=== PATIENT | male | born 1935 | race Caucasian/White ===

== ENCOUNTER → 2017-12-23 11:53 | Outpatient (CLI) | payer MEDICARE, SELFPAY ==
--- NOTE | 2017-12-23 11:54 | RAD_ITS ---
STUDY: X-RAY CHEST REASON FOR EXAM: Male, 82 years old. Pacemaker hypertension atrial fib TECHNIQUE: PA and lateral views of the chest. COMPARISON: None. FINDINGS: There is a left-sided pacemaker with leads overlying right atrium and ventricle. There is a lucency along the right side of the lower lobe that is most suggestive of a skin fold. There is trace left lower lobe atelectasis. There is no demonstrated pleural abnormality. There is borderline cardiomegaly. Normal mediastinum and aliyah. Normal visualized pulmonary arteries. Normal visualized aortic arch and descending thoracic aorta. There are diffuse degenerative changes of the visualized thoracic spine. Normal visualized ribs, clavicles, and shoulders. There is no demonstrated abnormality of the visualized soft tissue structures of the upper abdomen. RAD/Chest PA and Lateral IMPRESSION: No evidence of acute focal infiltrate. Trace left lower lobe atelectasis. Electronically Signed: Steff Torres MD at 10:16 EST Tel , Service support ,
[2017-12-23 12:25] LABS: Bacteria 0 SEEN /hpf (None Seen); Mucous, Urine 0 SEEN /hpf (<or=2+); Red Blood Cells-Urine 0 SEEN /hpf (0-5); White Blood Cells 0 SEEN /hpf (0-5)
[2017-12-23 13:36] LABS: Hematocrit 39.6 % (40-54); Hemoglobin 12.7 g/dl (13.0-16.5); Mean Corp Hgb Conc 32.1 g/gl (32-36); Mean Corpuscular Hgb 29.7 pg (27.0-32.0); Mean Corpuscular Volume 92.5 fL (80-94); Mean Platelet Vol. 10.1 fl (6.2-12.0); Platelet Count 186 K/mm3 (150-450); RBC Distribution Width CV 15.1 % (11.6-14.6); Red Blood Count 4.28 M/mm3 (4.6-6.2); White Blood Count 4.1 K/mm3 (4.4-11.0)
[2017-12-23 13:37] LABS: Scan Indicated on CBC? Y/N NO
[2017-12-23 13:38] LABS: Color, Urine Yellow (Yellow); Glucose, Dipstick Normal (Normal); Ketone-Dipstick Negative (Negative); Leukocyte Esterase-Dipstick Negative /ul (Negative); Nitrite-Dipstick Negative (Negative); Occult Blood-Urine Negative /ul (Negative); Protein-Dipstick Negative (Negative); Urine Bilirubin Dipstick Negative (Negative); Urine Clarity Sl. Cloudy (Clear); Urine Urobilinogen Normal (Normal)
[2017-12-23 13:45] LABS: Squamous Epithelial Cells - UA 0-5 SEEN /hpf (0-5)
[2017-12-23 14:00] LABS: Anion Gap 6 (5-15); BUN 18 mg/dL (7-18); BUN/Creat Ratio 20.9 RATIO (10-20); Chloride 101 mmol/L (98-107); Creatinine, Serum 0.86 mg/dL (0.70-1.30); EST Glomerular Filtration Rate 91 mL/min (>60); Est Glom Filt Rate - Afr Amer 110 mL/min (>60); Glucose 74 mg/dL (70-110); Potassium 4.1 mmol/L (3.5-5.1); Sodium Level 139 mmol/L (136-145)
[2017-12-23 14:36] LABS: International Normalized Ratio 1.4
== END ==
PROVIDERS: Family Provider Preventive Medicine Occupational Medicine; PCP Preventive Medicine Occupational Medicine; Visit Provider Internal Medicine Cardiovascular Disease
DX: I48.1 Persistent atrial fibrillation (principal); I48.92 Unspecified atrial flutter; I10 Essential (primary) hypertension; Z95.0 Presence of cardiac pacemaker
CPT/HCPCS: 36415; 71046; 80048; 81001; 85027; 85610

== ENCOUNTER → 2018-01-02 09:52 | Day surgery (SDC) | payer MEDICARE, SELFPAY ==
[2017-12-30 14:18] VITALS: BMI 24.3
--- NOTE | 2018-01-04 10:49 | CL.IE_ITS ---
Patient: JOLNATA MILLER Study Date: 01/02/2018 Performing: James Munguia MD : 1935 Age: 82 Gender: male PROCEDURES PERFORMED [id number] REMOVAL+REPLACEMENT PACER-DUAL LEAD INDICATIONS End-of-life replacement indicator PROCEDURE DETAILS The patient was brought to the Catheterization Lab in the postabsorptive nonsedated state. Informed consent was obtained prior to the procedure. Local anesthetic was given subcutaneously to the left herr bclavian region with Lidocaine 2%. Incision was made to the left subclavicular area. PPM atrial lead testing performed. PPM ventricular lead testing performed. PPM ventricular lead testing performed. Herr bcutaneous closure was completed with 3-0 Vicryl. Device pocket was irrigated with antibiotic. Skin c losure was completed with 4-0 Vicryl. Instrument, sponge, and needle counts were noted to be normal. The patient tolerated the procedure well. Estimated Blood Loss: < 10 mls IMPLANTED / EX-PLANTED DEVICES EXPLANTED DEVICE(S): PPM Generator - Psychiatric Registered Nurse: [employer], Model # IMPLANTED DEVICE(S): PPM Generator - Psychiatric Registered Nurse: [employer], Model # [id number] , Serial # [id number] DEVICE PARAMETERS DEVICE PARAMETERS: Mode - ddir lower rate - 60 upper rate - 120 rate response on CONCLUSIONS / RECOMMENDATIONS Device Conclusions: Successful implantation of a dual chamber pacemaker Device Recommendations: Follow up with Primary Care Physician PROCEDURE MEDICATIONS Versed 1 mg IV Versed 1 mg IV Fentanyl 25 mcg IV Oxygen: 2 L/min via nasal cannula Ancef 2 Gm IV @ 01/02/2018 11:42:56 Signed By James Munguia MD On 01/02/2018 12:55:05 James Munguia MD
== END ==
PROVIDERS: Family Provider Preventive Medicine Occupational Medicine; PCP Preventive Medicine Occupational Medicine; Visit Provider Internal Medicine Cardiovascular Disease
DX: I48.1 Persistent atrial fibrillation (principal); I48.92 Unspecified atrial flutter; I08.0 Rheumatic disorders of both mitral and aortic valves; I49.5 Sick sinus syndrome; I10 Essential (primary) hypertension; Z79.01 Long term (current) use of anticoagulants; Z79.899 Other long term (current) drug therapy; Z87.891 Personal history of nicotine dependence; Z00.6 Encounter for examination for normal comparison and control in clinical research program
CPT/HCPCS: 33228; 93005; 99152; 99153; J7040; J7050

== ENCOUNTER → 2019-07-02 12:09 | Outpatient (CLI) | payer MEDICARE, SELFPAY ==
[2019-07-02 13:21] LABS: Hematocrit 41.4 % (40-54); Hemoglobin 13.4 g/dL (13.0-16.5); Mean Corp Hgb Conc 32.4 g/dL (32-36); Mean Corpuscular Hgb 29.8 pg (27.0-32.0); Mean Corpuscular Volume 92.2 fL (80-94); Mean Platelet Vol. 10.7 fl (6.2-12.0); Platelet Count 147 K/mm3 (150-450); RBC Distribution Width CV 14.4 % (11.6-14.6); RBC Distribution Width SD 48.4 fl (35.1-43.9); Red Blood Count 4.49 M/mm3 (4.6-6.2); White Blood Count 4.7 K/mm3 (4.4-11.0)
[2019-07-02 13:56] LABS: ALB/GLOB Ratio 1.2 RATIO (0.9-2.4); AST(SGOT) 18 U/L (15-37); Alanine Aminotransfer ALT/SGPT 20 U/L (16-61); Albumin, Serum 3.5 g/dL (3.2-5.0); Alkaline Phosphatase 48 U/L (45-117); Anion Gap 7 (5-15); BUN 26 mg/dL (7-18); BUN/Creat Ratio 26.7 RATIO (10-20); Calcium,Total 9.2 mg/dL (8.5-10.1); Chloride 106 mmol/L (98-107); Cholesterol 153 mg/dL (200); Creatinine, Serum 0.97 mg/dL (0.70-1.30); EST Glomerular Filtration Rate 78 mL/min (>60); Est Glom Filt Rate - Afr Amer 95 mL/min (>60); Glucose 81 mg/dL (74-106); High Density Lipoprotein 59 mg/dL; Magnesium 1.8 mg/dL (1.6-2.6); Potassium 4.2 mmol/L (3.5-5.1); Protein, Total 6.5 g/dL (6.4-8.2); Sodium Level 143 mmol/L (136-145); Triglycerides 52 mg/dL; Uric Acid 5.5 mg/dL (3.5-7.2); Very Low Density Lipoprotein 10 mg/dL (5-40)
== END ==
PROVIDERS: Family Provider Preventive Medicine Occupational Medicine; PCP Preventive Medicine Occupational Medicine; Referring Provider Preventive Medicine Occupational Medicine; Visit Provider Preventive Medicine Occupational Medicine
DX: I10 Essential (primary) hypertension (principal); E78.5 Hyperlipidemia, unspecified; E83.42 Hypomagnesemia; M10.9 Gout, unspecified; D64.9 Anemia, unspecified
CPT/HCPCS: 36415; 80053; 80061; 83735; 84550; 85027

== ENCOUNTER → 2020-07-15 12:22 | Outpatient (CLI) | payer MEDICARE, SELFPAY ==
[2020-04-24 15:08] VITALS: BMI 24.7
[2020-07-15 13:56] LABS: ALB/GLOB Ratio 1.1 RATIO (0.9-2.4); AST(SGOT) 16 U/L (15-37); Alanine Aminotransfer ALT/SGPT 17 U/L (16-61); Albumin, Serum 3.3 g/dL (3.2-5.0); Alkaline Phosphatase 44 U/L (45-117); Anion Gap 1 (5-15); BUN 30 mg/dL (7-18); BUN/Creat Ratio 21.9 RATIO (10-20); Chloride 106 mmol/L (98-107); Cholesterol 147 mg/dL (200); Creatinine, Serum 1.37 mg/dL (0.70-1.30); EST Glomerular Filtration Rate 53 mL/min (>60); Est Glom Filt Rate - Afr Amer 64 mL/min (>60); Globulin 3.1 g/dL (2.2-4.2); Glucose 103 mg/dL (74-106); High Density Lipoprotein 46 mg/dL; Potassium 4.2 mmol/L (3.5-5.1); Protein, Total 6.4 g/dL (6.4-8.2); Sodium Level 141 mmol/L (136-145); Triglycerides 79 mg/dL; Uric Acid 7.3 mg/dL (3.5-7.2); Very Low Density Lipoprotein 16 mg/dL (5-40)
[2020-07-15 16:53] LABS: Microalbumin,Random Urine 21.9 mg/L (NO RANGE EST.); Microalbumin:Creatinine Ratio 30.3 mg/g CRE (<30 mg/g CRE)
== END ==
PROVIDERS: PCP Preventive Medicine Occupational Medicine; Referring Provider Preventive Medicine Occupational Medicine; Visit Provider Preventive Medicine Occupational Medicine
DX: E78.5 Hyperlipidemia, unspecified (principal); I10 Essential (primary) hypertension; E83.42 Hypomagnesemia; M10.9 Gout, unspecified
CPT/HCPCS: 36415; 80053; 80061; 82043; 82570; 83735; 84550

== ENCOUNTER 2021-01-06 07:26 | Day surgery (SDC) | payer MEDICARE, SELFPAY ==
[2020-10-20 11:39] VITALS: BMI 24.7
--- NOTE | 2021-01-01 10:12 | EKG12_ITS ---
Test Reason : PREOP Blood Pressure : / mmHG Vent. Rate : 060 BPM Atrial Rate : 057 BPM P-R Int : 000 ms QRS Dur : 176 ms QT Int : 476 ms P-R-T Axes : 000 225 077 degrees QTc Int : 476 ms Ventricular-paced rhythm Abnormal ECG Confirmed by ABEL JACOBSEN, LUBNA ([id number]), fashion editor BECKI CAMPBELL ([id number]) on 01/02/2021 8:45:49 AM Referred By: Cj Grullon Confirmed By:LUBNA ROMAN MD
[2021-01-01 11:13] LABS: Anion Gap 2 (5-15); BUN 25 mg/dL (7-18); BUN/Creat Ratio 18.9 RATIO (10-20); Calcium,Total 9.1 mg/dL (8.5-10.1); Chloride 110 mmol/L (98-107); Creatinine, Serum 1.32 mg/dL (0.70-1.30); EST Glomerular Filtration Rate 55 mL/min (>60); Est Glom Filt Rate - Afr Amer 67 mL/min (>60); Glucose 85 mg/dL (74-106); Potassium 4.3 mmol/L (3.5-5.1); Sodium Level 142 mmol/L (136-145)
--- NOTE | 2021-01-06 | LES_PTH ---
PATIENT: JOLANTA MILLER [place] [facility] [place][id number] AGE/SX: 85/M ROOM: RE01/06/[address]: Dr. uCrt Grullon MD : 1935 BED: DIS: 01/06/2021 SPEC #: [id number] RECD: 01/06/21 10:00 STATUS: CORINNA REOrlin #: [id number] AQUILES: 01/06/21 00:[address]: Curt Grullon DEPT: SURGICAL PATHOLOGY RECD BY: Leilani Cameron ENTERED: 01/06/21 11:10 SP TYPE: Lesion OTHR DR: MD Dr. Al Castelan DO Tissues: A - Skin of preauricular region B - Skin of preauricular region C - Skin of preauricular region D - Skin of preauricular region E - Skin of preauricular region F - Skin of preauricular region Procedures: Frozen Section (charge) Surgery Specimen Level IV HEADER OPERATION: Excision preauricular mass, frozen section PRE-OP DIAGNOSIS: Preauricular lesion right ear TISSUE SUBMITTED: A - Preauricular lesion right ear, FS 0956, B - 12-3 o'clock margin preauricular lesion right ear, FS 1004, C - 3-6 o'clock margin preauricular lesion right ear, FS 1004, D - 6-9 o'clock margin preauricular lesion right ear, FS 1004, D - 9-12 o'clock margin preauricular lesion right ear, FS 1004, E - Deep margin preauricular lesion right ear, FS 1004 FROZEN SECTION DIAGNOSIS A. 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 B. Right preauricular lesion, 12-3 o'clock margin, biopsy: Negative for carcinoma. C. Right preauricular lesion, 3-6 o'clock margin, biopsy: Negative for carcinoma. D. Right preauricular lesion, 6-9 o'clock margin, biopsy: Negative for carcinoma. E. Right preauricular lesion, 9-12 o'clock margin, biopsy: Negative for carcinoma. F. Right preauricular lesion, deep margin, biopsy: Negative for carcinoma. AM:luther 01/06/2021 MICROSCOPIC DIAGNOSIS A. 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 Mild actinic keratosis and solar elastosis. See comment. B. Right preauricular lesion, 12-3 o'clock margin, biopsy: Negative for carcinoma. Solar elastosis. C. Right preauricular lesion, 3-6 o'clock margin, biopsy: Negative for carcinoma. Solar elastosis. D. Right preauricular lesion, 6-9 o'clock margin, biopsy: Negative for carcinoma. Solar elastosis. E. Right preauricular lesion, 9-12 o'clock margin, biopsy: Negative for carcinoma. Solar elastosis. F. Right preauricular lesion, deep margin, biopsy: Negative for carcinoma. Mild chronic inflammation. SJ:rg 01/07/2021 COMMENT A. 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 Case has been reviewed in consultation with Dr. Arizmendi who concurs with the above diagnosis. IDC:AM MICROSCOPIC DESCRIPTION Slides are reviewed. GROSS DESCRIPTION A - Received fresh for frozen section consultation labeled with the patient's name is a specimen designated right preauricular lesion. The specimen consists of a discoid fragment of light noland excised skin measuring 1.5 cm in diameter and 0.5 cm in thickness. The cutaneous surface contains a raised noland lesion measuring 1 cm in greatest dimension. The specimen inked, serially sectioned and totally submitted in one block for frozen section consultation. B - Received fresh for frozen section consultation labeled with the patient's name is a specimen designated right preauricular lesion at 12-3 o'clock. The specimen consists of an elongated fragment of light noland skin measuring 1 x 0.1 x 0.1 cm. The specimen is submitted in its entirety for frozen section consultation in one block. C - Received fresh for frozen section consultation labeled with the patient's name is a specimen designated right preauricular lesion at 3-6 o'clock. The specimen consists of an elongated fragment of light noland skin measuring 1 x 0.1 x 0.1 cm. The specimen is submitted in its entirety for frozen section consultation in one block. D - Received fresh for frozen section consultation labeled with the patient's name is a specimen designated right preauricular lesion at 6-9 o'clock. The specimen consists of an elongated fragment of light noland skin measuring 0.7 x 0.2 x 0.1 cm. The specimen is submitted in its entirety for frozen section consultation in one block. E - Received fresh for frozen section consultation labeled with the patient's name is a specimen designated right preauricular lesion at 9-12 o'clock. The specimen consists of an elongated fragment of light noland skin measuring 0.7 x 0.2 x 0.1 cm. The specimen is submitted in its entirety for frozen section consultation in one block. F - Received fresh for frozen section consultation labeled with the patient's name is a specimen designated right preauricular lesion, deep margin. The specimen consists of an elongated fragment of light noland skin measuring 0.2 x 0.1 x 0.1 cm. The specimen is submitted in its entirety for frozen section consultation in one block. / AM:luther 01/06/2021 TC:0 CPT: 57538 x6, 96197 x6
[2021-01-06] MEDS: Lactated Ringers 1,000 ML 100 ML IV ×2 (08:15→10:31)
[2021-01-06 08:31] VITALS: BP 136/61; PULSE 60; RESP 16; TEMP 36.6; O2SAT 95; BMI 24.7
--- NOTE | 2021-01-06 08:39 | DCINST_ITS ---
You will use the following diet at home:: No restrictions Your food should be the consistency of: Regular Discharge Activity: Return to Normal Activity Call your doctor if your incision/area has: Increased Pain/ Swelling Additional Dressing/Incision Instructions:: mupirocin to incisions twice daily. may shower starting morning. wash with soap/water. Allergies/Adverse Reactions: Allergies No Known Allergies Allergy (Verified 01/06/21 08:12) Medications to take at Discharge Fluticasone 0.05% [Flonase Nasal [place]] 1 spray NASAL DAILY PRN 08/04/17 Senna/Docusate Sodium [Senokot-S] 2 tab PO BID PRN 08/04/17 multivitamin 1 cap PO QDAY 12/23/17 aspirin 81 mg tablet,delayed release 81 mg PO DAILY 10/04/19 alprazolam 1 mg tablet 1 mg PO DAILY PRN tab 04/24/20 doxazosin 4 mg tablet 4 mg PO DAILY #90 tab 04/24/20 ramipril 5 mg capsule 5 mg PO QPM #90 cap 10/20/20 triamterene 75 mg-hydrochlorothiazide 50 mg tablet 1 tab PO DAILY tab 10/20/20 Orders to be completed after discharge: 12 Lead EKG [[facility]] Time Frame: 1 Week, Location: None Selected Primary Care Physician: lA Gonsalez DO [Primary Care Provider] - Test Results: Test results from this visit will be discussed in further detail at your follow- up appointment, if applicable. Please Follow Up With: Cj Grullon MD When: 1 week
--- NOTE | 2021-01-06 08:40 | OP.PCM_ITS ---
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 he was placed under general anesthesia with an LMA; the tube was secured, the eyes were taped. the left temporal lesion, measuring 1cm, was injected with lidocaine/epinephrine. the face was prepped and draped in sterile fashion. the lesion was excised with a 15 blade and sent for frozen section, which returned basal cell carcinoma. additional 4mm circumferential margins were excised. four quadrant margins were sent and were all negative. the final defect measured 2.2 cm in diameter. a preauricular advancement flap was prepped. a 5cm incision was made in a preauricular skin crease. a subcutaneous fat plane was dissected 5cm anterior to the tragus. the final flap defect was 25 sq cm. the flap was advanced into the defect and sutured using 4- 0 vicryl and 5-0 prolene. an anterior dog ear was trimmed. the patient was awoken from anesthesia and transferred to the PACU in stable condition.
[2021-01-06] MEDS: Mupirocin Ointment 22gm Tube 1 APPLIC (10:30)
[2021-01-06 10:45] VITALS: BP 117/52; BP 136/61; PULSE 61; RESP 16; TEMP 36; O2SAT 97
[2021-01-06 11:00] VITALS: BP 102/55; BP 136/61; PULSE 60; RESP 16; O2SAT 97
[2021-01-06 11:15] VITALS: BP 116/49; BP 136/61; PULSE 60; RESP 16; TEMP 36.2; O2SAT 96
[2021-01-06 12:48] VITALS: BP 110/52; BP 136/61; PULSE 59; RESP 16; TEMP 36.3; O2SAT 94
== END 2021-01-06 12:50 | disposition home or self-care (01) ==
LOC: SDC 07:26 → AC 07:27
PROVIDERS: PCP Preventive Medicine Occupational Medicine; Referring Provider Otolaryngology; Visit Provider Otolaryngology
PROC: (CPT 14060; principal; 2021-01-06 08:55)
DX: C44.319 Basal cell carcinoma of skin of other parts of face (principal); Z20.828 Contact with and (suspected) exposure to other viral communicable diseases; Z79.899 Other long term (current) drug therapy; Z79.82 Long term (current) use of aspirin; I48.91 Unspecified atrial fibrillation; I10 Essential (primary) hypertension; Z95.0 Presence of cardiac pacemaker; Z87.891 Personal history of nicotine dependence; F41.9 Anxiety disorder, unspecified
CPT/HCPCS: 00300; 14060; 36415; 80048; 87426; 88305; 88331; 93005; C9803; J7120; J2405

== ENCOUNTER → 2021-07-14 13:41 | Outpatient (CLI) | payer MEDICARE, SELFPAY ==
[2021-07-14 14:24] LABS: Hematocrit 43.1 % (40-54); Hemoglobin 13.5 g/dL (13.0-16.5); Mean Corp Hgb Conc 31.3 g/dL (32-36); Mean Corpuscular Hgb 29.5 pg (27.0-32.0); Mean Corpuscular Volume 94.3 fL (80-94); Mean Platelet Vol. 10.2 fl (6.2-12.0); Platelet Count 200 K/mm3 (150-450); RBC Distribution Width CV 14.6 % (11.6-14.6); RBC Distribution Width SD 50.4 fl (35.1-43.9); Red Blood Count 4.57 M/mm3 (4.6-6.2); White Blood Count 5.9 K/mm3 (4.4-11.0)
[2021-07-14 14:45] LABS: Microalbumin,Random Urine 25.4 mg/L (NO RANGE EST.)
[2021-07-14 14:55] LABS: ALB/GLOB Ratio 1.1 RATIO (0.9-2.4); AST(SGOT) 17 U/L (15-37); Alanine Aminotransfer ALT/SGPT 18 U/L (16-61); Albumin, Serum 3.8 g/dL (3.2-5.0); Alkaline Phosphatase 52 U/L (45-117); Anion Gap 4 (5-15); BUN 40 mg/dL (7-18); BUN/Creat Ratio 25.6 RATIO (10-20); Calcium,Total 9.8 mg/dL (8.5-10.1); Chloride 107 mmol/L (98-107); Cholesterol 171 mg/dL (200); Creatinine, Serum 1.56 mg/dL (0.70-1.30); EST Glomerular Filtration Rate 45 mL/min (>60); Est Glom Filt Rate - Afr Amer 55 mL/min (>60); Globulin 3.5 g/dL (2.2-4.2); Glucose 82 mg/dL (74-106); High Density Lipoprotein 52 mg/dL; Potassium 4.7 mmol/L (3.5-5.1); Protein, Total 7.3 g/dL (6.4-8.2); Sodium Level 138 mmol/L (136-145); Triglycerides 92 mg/dL; Very Low Density Lipoprotein 18 mg/dL (5-40)
== END ==
PROVIDERS: PCP Preventive Medicine Occupational Medicine; Referring Provider Preventive Medicine Occupational Medicine; Visit Provider Preventive Medicine Occupational Medicine
DX: I10 Essential (primary) hypertension (principal); E78.5 Hyperlipidemia, unspecified; D64.9 Anemia, unspecified
CPT/HCPCS: 36415; 80053; 80061; 82043; 83735; 85027

== ENCOUNTER 2023-05-24 10:00 | Outpatient (RCR) | payer MEDICARE, SELFPAY ==
[2023-05-17 09:19] VITALS: BP 150/54; PULSE 63; RESP 20; TEMP 35.8
--- NOTE | 2023-05-17 12:42 | PCM.WC.HP ---
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 The patient has been undergoing recent physical therapy for issues related to his right knee. He was placed in a right knee brace, and was instructed to leave it in place, without removing. The brace was in place for approximately 5 weeks, when the patient began to complain of pain on the lateral aspect of his right knee. The brace was removed, and the patient was found to have a pressure ulceration on the lateral aspect of his right knee which appears to be a stage III pressure ulcer. The patient has been referred for evaluation and management. The patient is on Xarelto, and has a history of atrial fibrillation. The patient ambulates in limited fashion, requiring a walker. He sleeps flat at night. His history is negative for myocardial infarction, cerebrovascular accident, renal disease, pulmonary disease, thyroid disease, and hyperlipidemia. He has previously undergone bilateral hip replacement surgery, as well as bilateral knee replacement procedures. He has an indwelling pacemaker. FOR[facility]LY [facility] Medical History Basal cell carcinoma (BCC) of face Essential (primary) hypertension Longstanding persistent atrial fibrillation Nonrheumatic aortic (valve) insufficiency Nonrheumatic aortic valve insufficiency Nonrheumatic mitral (valve) insufficiency Nonrheumatic mitral (valve) insufficiency Paroxysmal atrial flutter Pressure ulcer Sick sinus syndrome Tobacco abuse Tobacco abuse counseling Home Medications fluticasone propionate 50 mcg/actuation nasal spray,suspension 1 spray NASAL DAILY PRN Nasal Congestion 08/04/17 [History Last Taken Unknown] sennosides 8.6 mg-docusate sodium 50 mg tablet 2 tab PO BID PRN Constipation 08/04/17 [History Last Taken Unknown] multivitamin 1 cap PO QDAY 12/23/17 [History Last Taken Unknown] alprazolam 1 mg tablet 1 mg PO DAILY PRN aniexty 04/24/20 [History Last Taken Unknown] triamterene 75 mg-hydrochlorothiazide 50 mg tablet 1.5 tab PO DAILY 07/14/21 [History Last Taken Unknown] doxazosin 4 mg tablet 4 mg PO DAILY #90 tabs 01/25/22 [Rx Last Taken Unknown] ramipril 5 mg capsule See Rx Instructions .Route .COMPLEX #90 caps 12/09/22 [Rx Last Taken Unknown] Allergy/AdvReac Type Severity Reaction Status Date / Time No Known Allergies Allergy Verified 05/17/23 09:42 Family History Father Cancer Stomach Cancer Surgical History History of bilateral hip replacements History of bilateral knee replacement 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) Pacemaker Social History Smoking Status: Former smoker alcohol intake: never substance use type: does not use what type of physical activity do you participate in: none Vital Signs Vital Signs Vital Signs: 05/17/23 09:19 Temperature 96.4 F L Temperature Source Temporal Pulse Rate 63 Respiratory Rate 20 H Blood Pressure 150/54 H Blood Pressure Mean 86 Blood Pressure Source Monitor Physical Exam Const alert, oriented x3, no apparent distress and well nourished Constitutional Narrative: The patient is of normal body habitus, with a BMI of approximately 24.7. General Appearance: cooperative, comfortable, well kempt and well developed Orientation / Consciousness: awake, oriented to person, oriented to place and oriented to time HEENT normocephalic, head/scalp atraumatic and hearing grossly normal bilaterally Head and Scalp: normal to inspection, normocephalic and atraumatic External Ear: external ears normal Eyes PERRL and EOMs intact bilaterally General Eye: normal appearance of both eyes Neck full ROM Resp normal respiratory effort, normal air movement, no retractions and no use of accessory muscles Effort and Inspection: able to speak in complete sentences and symmetric chest movement Extremity no calf tenderness General Extremity: Negative for clubbing or cyanosis Skin Wound Narrative: A pressure ulcer is noted on the right lateral knee. It is frankly necrotic and dry. Dimensions are documented elsewhere. There is no drainage. There is no odor. There is no sign of infection or cellulitis. Mild swelling is noted in the distal right lower extremity. Neuro oriented x3, CN's II-XII intact bilaterally and moves all extremities Sensorium / Orientation: awake, alert, oriented to person, oriented to place and oriented to time Psych Appearance: grossly normal and appropriate Attitude: calm Activity / Motor Behavior: appropriate eye contact Speech: normal speech Mood & Affect: euthymic mood Thought Process: normal thought process Thought Content: normal thought content Attention / Concentration: attention grossly intact Debridement Note Debridement Note Wound debrided: Stage III pressure ulceration, right lateral knee Laterality: Right Type of Debridement: Excisional debridement Anesthesia Used: 5% Lidocaine Gel Depth: Down to and including healthy tissue and in the subcutaneous layer Percentage of wound debrided: 100 Instrument Used: 5mm curette Severity: Fat Layer Exposed Amount of bleeding with debridement: Mild Bleeding Controlled with: Compression and gauze Patient tolerated procedure: Patient tolerated procedure well Debridement Free Text: The pressure ulceration on the right lateral knee consists of primarily dry, gangrenous necrotic tissue. A large amount of the gangrenous material was removed by means of excisional debridement today. Approximately 60% of the necrotic material was removed. It is anticipated that enzymatic debridement and serial mechanical debridements will ultimately eliminate the remaining portion of the necrotic material. The procedure was well-tolerated by the patient. Post-Debridement Measurements and Additional Note: Post-Debridement Measurements/Treatment - Nurse 1 - General Ulcer Assessment Start: 05/17/23 09:18 Freq: Status: Active Protocol: WC.LOWEXT Activity Type Activity Date Activity User E-sign Co-sign Detail Recorded Client Recorded Date Recorded By Document 05/17/23 09:19 DL [id number] 05/17/23 09:37 DL 05/17/23 09:19 - Today's Visit Information Type of service Initial Visit Arrival Mode Ambulatory, Walker Transfer Assistance None Patient Identification Verified (Name & Yes ) Patient Requires Transmission-Based No Precautions Vital Signs Temperature (97.8 F-99.1 F) 96.4 F L Temperature Source Temporal Pulse Rate (60-100) 63 Pulse Location Monitor Respiratory Rate (12-18) 20 H Respiratory rate source Observation Blood Pressure (90/60-120/80) 150/54 H Blood Pressure Mean 86 Source Monitor Pain Scale: 0-10 Numeric Is Patient Pain Free? Yes Communication Assessment Preferred language Citizen Of [place] Able to Read Yes Able to Write Yes Communication Tools None Right Hearing Abillity Normal Left Hearing Abillity Normal Visual Assistive Devices Glasses Teaching Assessment Preferences Verbal,Written, Demonstration Barriers to Learning None Readiness To Learn Good Willingness to Engage in Self Management Med Activies Readiness to Engage in Self Management Med Activities Anxiety Level Calm Cooperation Cooperative Perception Coherent Interest in Health Problem Asks Questions Education Importance Acknowledges Need Does Patient Smoke tobacco or other No substances Is Patient Diabetic No Functional Assessment Recent Decline in Ability to Perform Denies Any Declines 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 Doubling Machine Operator to contact place of rastafari No WC - Nurse 1 - General Ulcer Measurement Start: 05/17/23 09:18 Freq: Status: Active Protocol: Activity Type Activity Date Activity User E-sign Co-sign Detail Recorded Client Recorded Date Recorded By Document 05/17/23 09:19 DL [id number] 05/17/23 09:37 DL 05/17/23 09:19 Wound Center Nurse 1 #1 R Knee -Current Size (cm) - Length 1.6 -Current Size (cm) - Width 1.6 -Current Size (cm) - Depth 0.3 -Total Square Cm 2.56 -Photo Taken Yes -Exudate Amt None Present -Wound Margin Thickened -Granulation Amt None Present (0 %) -Necrotic Tissue Type Eschar -Structure Exposed N/A -Texture (Gricel-wound Skin Appearance) Localized Edema ,Scarring -Moisture (Gricel-wound Skin Appearance) Dry/Scaly -Color (Gricel-wound Skin Appearance) Erythema -Temperature (Gricel-wound Skin No Abnormality Appearance) (Pt Warm) -Tenderness on Palpation (Gricel-wound No Skin Appearance) -Ulcer Cleansing Soap and Water -Foul Odor after Cleansing No -Anesthetic Used 5% Lidocaine Gel Right Calf (cm) 30 Right Ankle (cm) 24 Left Calf (cm) 31 Left Ankle (cm) 22.5 WC - Nurse 2 - General Ulcer CM Notes Start: 05/17/23 09:18 Freq: Status: Active Protocol: Activity Type Activity Date Activity User E-sign Co-sign Detail Recorded Client Recorded Date Recorded By Document 05/17/23 12:12 PL [id number] 05/17/23 12:14 PL 05/17/23 12:12 Wound Center Nurse 2 #1 R Knee -Time 10:09 -Correct Patient Yes -Correct Side, Site, Position Yes -Correct Procedure Yes -Procedure Performed Yes -Type of Procedure Debridement -Clinical Debridement Subcutaneous -Tissue Removed Subcutaneous -Post Debridement (cm) - Length 1.6 -Post Debridement (cm) - Width 1.6 -Post Debridement (cm) - Depth 0.3 -Total Square (Post) (cm) 2.56 -Area of Debridement (cm) - Length 1.6 -Area of Debridement (cm) - Width 1.6 -Total Square (Area) (cm) 2.56 -Tunneling No -Undermining/Tunneling No -Circular Undermining No -Wound/Ulcer Outcome Not Healed -Ulcer Cleansing Rinsed/ Irrigated with Saline -Foul Odor after Cleansing No -Bioengineered Tissue No -Bleeding Controlled with Pressure -Treatment Response Procedure Tolerated Well -Debridement - Subq, 1st 20sq cm Yes Pain Scale: 0-10 Numeric Is Patient Pain Free? Yes - Nurse 3 - General Ulcer D/C NN Start: 05/17/23 09:18 Freq: Status: Active Protocol: Activity Type Activity Date Activity User E-sign Co-sign Detail Recorded Client Recorded Date Recorded By Document 05/17/23 10:36 DL [id number] 05/17/23 10:37 DL 05/17/23 10:36 Wound Care Center Nurse 3 #1 R Knee -Primary Dressing Applied Mepilex Border -Other Dressing hydrogel -Other Covering Santyl when available -Mepilex Border 1 Treatment Response Procedure Tolerated Well Pain Scale: 0-10 Numeric Is Patient Pain Free? Yes - Visit Discharge Discharge Condition Stable Ambulatory Status Ambulatory, Walker Transportation Private Auto Assessment/Plan Assessment/Plan (1) Pressure ulcer: CODE(S): L89.90 - Pressure ulcer of unspecified site, unspecified stage QUALIFIERS: Pressure injury location: knee Pressure injury stage: stage 3 Laterality: right Qualified Code(s): L89.893 - Pressure ulcer of other site, stage 3 (2) History of permanent cardiac pacemaker placement: CODE(S): Z95.0 - Presence of cardiac pacemaker (3) Sick sinus syndrome: CODE(S): I49.5 - Sick sinus syndrome (4) Longstanding persistent atrial fibrillation: CODE(S): I48.11 - Longstanding persistent atrial fibrillation (5) Paroxysmal atrial flutter: CODE(S): I48.92 - Unspecified atrial flutter (6) Essential (primary) hypertension: CODE(S): I10 - Essential (primary) hypertension (7) Tobacco abuse: CODE(S): Z72.0 - Tobacco use (8) Tobacco abuse counseling: CODE(S): Z71.6 - Tobacco abuse counseling (9) Nonrheumatic aortic (valve) insufficiency: CODE(S): I35.1 - Nonrheumatic aortic (valve) insufficiency (10) Nonrheumatic mitral (valve) insufficiency: CODE(S): I34.0 - Nonrheumatic mitral (valve) insufficiency (11) History of bilateral hip replacements: CODE(S): Z96.643 - Presence of artificial hip joint, bilateral (12) History of bilateral knee replacement: CODE(S): Z96.653 - Presence of artificial knee joint, bilateral PLAN: Plan This is an 88-year-old male who presents with a stage III pressure ulceration on the right lateral knee. The ulceration occurred as a result of a knee brace which was worn for 5 weeks, without removal. Upon development of pain on the lateral aspect of the right knee, the brace was removed, revealing the presence of a pressure ulceration. An excisional debridement has been performed today, removing a large portion of the frankly necrotic and gangrenous material. Offloading measures are to be implemented, and have been discussed with the patient and his . We are to implement the use of collagenase Santyl topically, which will be applied on a daily basis. The patient and his have been instructed in the appropriate means of application. A prescription has been provided. Serial debridements are anticipated. At this juncture, the pressure ulceration appears to be a stage III, and extension into the joint space or bone is not suspected. The patient is to elevate his lower extremities is much as possible, to minimize swelling. He is to follow-up on an outpatient basis in 1 week. Total time: 50 minutes
[2023-05-24 09:48] VITALS: BP 144/52; PULSE 60; RESP 20; TEMP 36.2
--- NOTE | 2023-05-24 12:50 | HP.PCM_ITS ---
History of Present Illness Date of Service: 05/24/23 Chief Complaint: Stage III pressure ulceration of the right lateral knee History of Wound: This is an 88-year-old male who presented with a pressure ulceration located on the right lateral knee. The patient has been undergoing recent physical therapy for issues related to his right knee. He was placed in a right knee brace, and was instructed to leave it in place, without removing. The brace was in place for approximately 5 weeks, when the patient began to complain of pain on the lateral aspect of his right knee. The brace was removed, and the patient was found to have a pressure ulceration on the lateral aspect of his right knee whic h appears to be a stage III pressure ulcer. The patient has been referred for evaluation and management. The patient is on Xarelto, and has a history of atrial fibrillation. The patient ambulates in limited fashion, requiring a walker. He sleeps flat at night. His history is negative for myocardial infarction, cerebrovascular accident, renal disease, pulmonary disease, thyroid disease, and hyperlipidemia. He has previously undergone bilateral hip replacement surgery, as well as bilateral knee replacement procedures. He has an indwelling pacemaker. [facility] Medical History Basal cell carcinoma (BCC) of face Essential (primary) hypertension Longstanding persistent atrial fibrillation Nonrheumatic aortic (valve) insufficiency Nonrheumatic aortic valve insufficiency Nonrheumatic mitral (valve) insufficiency Nonrheumatic mitral (valve) insufficiency Paroxysmal atrial flutter Pressure ulcer Sick sinus syndrome Tobacco abuse Tobacco abuse counseling Home Medications fluticasone propionate 50 mcg/actuation nasal spray,suspension 1 spray NASAL DAILY PRN Nasal Congestion 08/04/17 [History Last Taken Unknown] sennosides 8.6 mg-docusate sodium 50 mg tablet 2 tab PO BID PRN Constipation 08/04/17 [History Last Taken Unknown] multivitamin 1 cap PO QDAY 12/23/17 [History Last Taken Unknown] alprazolam 1 mg tablet 1 mg PO DAILY PRN aniexty 04/24/20 [History Last Taken Unknown] triamterene 75 mg-hydrochlorothiazide 50 mg tablet 1.5 tab PO DAILY 07/14/21 [History Last Taken Unknown] doxazosin 4 mg tablet 4 mg PO DAILY #90 tabs 01/25/22 [Rx Last Taken Unknown] ramipril 5 mg capsule See Rx Instructions .Route .COMPLEX #90 caps 12/09/22 [Rx Last Taken Unknown] Allergy/AdvReac Type Severity Reaction Status Date / Time No Known Allergies Allergy Verified 05/17/23 09:42 Family History Father Cancer Stomach Cancer Surgical History History of bilateral hip replacements History of bilateral knee replacement 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 General Appearance: cooperative, comfortable, well kempt and well developed Orientation / Consciousness: awake, oriented to person, oriented to place and oriented to time HEENT normocephalic, head/scalp atraumatic and hearing grossly normal bilaterally Head and Scalp: normal to inspection, normocephalic and atraumatic External Ear: external ears normal Eyes PERRL and EOMs intact bilaterally General Eye: normal appearance of both eyes Neck full ROM Resp normal respiratory effort, normal air movement, no retractions and no use of accessory muscles Effort and Inspection: able to speak in complete sentences and symmetric chest movement Extremity no calf tenderness General Extremity: Negative for clubbing or cyanosis Skin Wound Narrative: A pressure ulcer is noted on the right lateral knee. There is a large amount of frankly necrotic tissue. There is a faint rim of erythema. Dimensions are documented elsewhere. There is no drainage. There is no odor. Mild swelling is noted in the distal right lower extremity. Neuro oriented x3, CN's II-XII intact bilaterally and moves all extremities Sensorium / Orientation: awake, alert, oriented to person, oriented to place and oriented to time Psych Appearance: grossly normal and appropriate Attitude: calm Activity / Motor Behavior: appropriate eye contact Speech: normal speech Mood & Affect: euthymic mood Thought Process: normal thought process Thought Content: normal thought content Attention / Concentration: attention grossly intact Debridement Note Debridement Note Wound debrided: Stage III pressure ulceration, right lateral knee Laterality: Right Type of Debridement: Excisional debridement Anesthesia Used: 5% Lidocaine Gel Depth: Down to and including healthy tissue and in the subcutaneous layer Percentage of wound debrided: 100 Instrument Used: 5mm curette, #15 blade and Forceps Severity: Fat Layer Exposed Amount of bleeding with debridement: Mild Bleeding Controlled with: Compression and gauze Patient tolerated procedure: Patient tolerated procedure well Debridement Free Text: The pressure ulceration on the right lateral knee consists of persisting gangrenous, necrotic tissue. A large amount of the gangrenous material was removed by means of excisional debridement today using a 5 mm curette and #15 scalpel blade. Most of the necrotic and nonviable tissue has now been removed. Because of the periulcer erythema, swab cultures were obtained today for aerobic and anaerobic bacterial growth. Post-Debridement Measurements and Additional Note: Post-Debridement Measurements/Treatment - Nurse 1 - General Ulcer Assessment Start: 05/17/23 09:18 Freq: Status: Active Protocol: MEG.SHIRIN Activity Type Activity Date Activity User E-sign Co-sign Detail Recorded Client Recorded Date Recorded By Document 05/17/23 09:19 DL [id number] 05/17/23 09:37 DL Document 05/24/23 09:48 DL [id number] 05/24/23 09:57 DL 05/17/23 05/24/23 09:19 09:48 - Today's Visit Information Type of service Initial Visit Follow-up Visit (Physician/RETAIL PHARMACY MANAGER ) Arrival Mode Ambulatory, Ambulatory, Walker Walker Transfer Assistance None None Patient Identification Verified (Name & Yes Yes ) Patient Requires Transmission-Based No No Precautions Vital Signs Temperature (97.8 F-99.1 F) 96.4 F L 97.1 F L Temperature Source Temporal Temporal Pulse Rate (60-100) 63 60 Pulse Location Monitor Monitor Respiratory Rate (12-18) 20 H 20 H Respiratory rate source Observation Observation Blood Pressure (90/60-120/80) 150/54 H 144/52 H Blood Pressure Mean 86 82 Source Monitor Monitor History Since Last Visit- (Skip if this is Patient's initial visit) Have you changed medications since your No last visit? Any new allergies or adverse reactions No Had a fall/change in ADL's that may No increase risk of falls Signs or symptoms of abuse and/or No neglect since last visit Have you been in the hospital since your No last visit? Has dressing in place as prescribed Yes Has compression in place as prescribed N/A Has offloadiing in place as prescribed Yes Experienced any changes in pain level or No management Pain Scale: 0-10 Numeric Is Patient Pain Free? Yes Yes Communication Assessment Preferred language Macedonian Able to Read Yes Able to Write Yes Communication Tools None Right Hearing Abillity Normal Left Hearing Abillity Normal Visual Assistive Devices Glasses Teaching Assessment Preferences Verbal,Written, Demonstration Barriers to Learning None Readiness To Learn Good Willingness to Engage in Self Management Med Activies Readiness to Engage in Self Management Med Activities Anxiety Level Calm Cooperation Cooperative Perception Coherent Interest in Health Problem Asks Questions Education Importance Acknowledges Need Does Patient Smoke tobacco or other No substances Is Patient Diabetic No Functional Assessment Recent Decline in Ability to Perform Denies Any Declines Culture/Roman Catholic/Technical Aide Cultural/Roman Catholic Needs that may affect No Treatment Plan Would you allow our hospital acute dialysis nurse to No meet you for the purpose of spiritual/ emotional support? Technical Aide to contact place of anabaptist No WC - Nurse 1 - General Ulcer Measurement Start: 05/17/23 09:18 Freq: Status: Active Protocol: Activity Type Activity Date Activity User E-sign Co-sign Detail Recorded Client Recorded Date Recorded By Document 05/17/23 09:19 DL [id number] 05/17/23 09:37 DL Document 05/24/23 09:48 DL [id number] 05/24/23 09:57 DL 05/17/23 05/24/23 09:19 09:48 Wound Center Nurse 1 #1 R Knee -Current Size (cm) - Length 1.6 1.5 -Current Size (cm) - Width 1.6 1.5 -Current Size (cm) - Depth 0.3 0.1 -Total Square Cm 2.56 2.25 -Photo Taken Yes No -Exudate Amt None Present Medium -Exudate Type Serosanguineous -Wound Margin Thickened Distinct, Outline Attached -Granulation Amt None Present (0 None Present (0 %) %) -Necrosis Amt Large (67-100%) -Necrotic Tissue Type Eschar Adherent Slough -Structure Exposed N/A N/A -Texture (Gricel-wound Skin Appearance) Localized Edema Localized Edema ,Scarring ,Scarring -Moisture (Gricel-wound Skin Appearance) Dry/Scaly No Abnormality -Color (Gricel-wound Skin Appearance) Erythema Ecchymosis, Erythema -Temperature (Griecl-wound Skin No Abnormality No Abnormality Appearance) (Pt Warm) (Pt Warm) -Tenderness on Palpation (Gricel-wound No No Skin Appearance) -Ulcer Cleansing Soap and Water Rinsed/ Irrigated with Saline -Foul Odor after Cleansing No -Anesthetic Used 5% Lidocaine 5% Lidocaine Gel Gel Right Calf (cm) 30 Right Ankle (cm) 24 Left Calf (cm) 31 Left Ankle (cm) 22.5 WC - Nurse 2 - General Ulcer CM Notes Start: 05/17/23 09:18 Freq: Status: Active Protocol: Activity Type Activity Date Activity User E-sign Co-sign Detail Recorded Client Recorded Date Recorded By Document 05/17/23 12:12 PL [id number] 05/17/23 12:14 PL Document 05/24/23 12:21 PL [id number] 05/24/23 12:22 PL 05/17/23 05/24/23 12:12 12:21 Wound Center Nurse 2 #1 R Knee -Time 10:09 10:37 -Correct Patient Yes Yes -Correct Side, Site, Position Yes Yes -Correct Procedure Yes Yes -Procedure Performed Yes Yes -Type of Procedure Debridement Debridement -Clinical Debridement Subcutaneous Subcutaneous -Tissue Removed Subcutaneous Subcutaneous -Post Debridement (cm) - Length 1.6 1.5 -Post Debridement (cm) - Width 1.6 1.5 -Post Debridement (cm) - Depth 0.3 0.1 -Total Square (Post) (cm) 2.56 2.25 -Area of Debridement (cm) - Length 1.6 1.5 -Area of Debridement (cm) - Width 1.6 1.5 -Total Square (Area) (cm) 2.56 2.25 -Tunneling No No -Undermining/Tunneling No No -Circular Undermining No No -Wound/Ulcer Outcome Not Healed Not Healed -Ulcer Cleansing Rinsed/ Rinsed/ Irrigated with Irrigated with Saline Saline -Foul Odor after Cleansing No No -Bioengineered Tissue No No -Bleeding Controlled with Pressure Pressure -Treatment Response Procedure Procedure Tolerated Well Tolerated Well -Debridement - Subq, 1st 20sq cm Yes Yes Pain Scale: 0-10 Numeric Is Patient Pain Free? Yes Yes - Nurse 3 - General Ulcer D/C NN Start: 05/17/23 09:18 Freq: Status: Active Protocol: Activity Type Activity Date Activity User E-sign Co-sign Detail Recorded Client Recorded Date Recorded By Document 05/17/23 10:36 DL [id number] 05/17/23 10:37 DL Document 05/24/23 10:48 DL [id number] 05/24/23 10:50 DL 05/17/23 05/24/23 10:36 10:48 Wound Care Center Nurse 3 #1 R Knee -Ulcer Cleansing Rinsed/ Irrigated with Saline -Foul Odor after Cleansing No -Primary Dressing Applied Mepilex Border -Other Dressing hydrogel hydrogel today -Primary Dressing Covered/Secured with Dry Gauze & Roll Gauze, Secured with Tape -Other Covering Santyl when available -Mepilex Border 1 Treatment Response Procedure Procedure Tolerated Well Tolerated Well Pain Scale: 0-10 Numeric Is Patient Pain Free? Yes Yes - Visit Discharge Discharge Condition Stable Stable Ambulatory Status Ambulatory, Ambulatory, Walker Walker Transportation Private Auto Private Auto Notes: resume Santyl at home. Assessment/Plan Assessment/Plan (1) Pressure ulcer: CODE(S): L89.90 - Pressure ulcer of unspecified site, unspecified stage QUALIFIERS: Pressure injury location: knee Pressure injury stage: stage 3 Laterality: right Qualified Code(s): L89.893 - Pressure ulcer of other site, stage 3 (2) History of permanent cardiac pacemaker placement: CODE(S): Z95.0 - Presence of cardiac pacemaker (3) Sick sinus syndrome: CODE(S): I49.5 - Sick sinus syndrome (4) Longstanding persistent atrial fibrillation: CODE(S): I48.11 - Longstanding persistent atrial fibrillation (5) Paroxysmal atrial flutter: CODE(S): I48.92 - Unspecified atrial flutter (6) Essential (primary) hypertension: CODE(S): I10 - Essential (primary) hypertension (7) Tobacco abuse: CODE(S): Z72.0 - Tobacco use (8) Tobacco abuse counseling: CODE(S): Z71.6 - Tobacco abuse counseling (9) Nonrheumatic aortic (valve) insufficiency: CODE(S): I35.1 - Nonrheumatic aortic (valve) insufficiency (10) Nonrheumatic mitral (valve) insufficiency: CODE(S): I34.0 - Nonrheumatic mitral (valve) insufficiency (11) History of bilateral hip replacements: CODE(S): Z96.643 - Presence of artificial hip joint, bilateral (12) History of bilateral knee replacement: CODE(S): Z96.653 - Presence of artificial knee joint, bilateral PLAN: Plan This is an 88-year-old male who presents with a stage III pressure ulceration on the right lateral knee. The ulceration occurred as a result of a knee brace which was worn for 5 weeks, without removal. Upon development of pain on the lateral aspect of the right knee, the brace was removed, revealing the presence of a pressure ulceration. An excisional debridement has been performed today, removing most of the remaining necrotic and gangrenous material. Because of the presence of periulcer erythema, and possible cellulitis, swab cultures have been obtained for aerobic and anaerobic bacterial growth. Results will be awaited, and response will be predicated upon the results of cultures. Offloading measures are to be continued, and have been discussed with the patient and his . We are to continue the use of collagenase Santyl topically, which will be applied on a daily basis. The patient and his have been instructed in the appropriate means of application. Serial debridements are anticipated. At this juncture, the pressure ulceration appears to be a stage III, and extension into the joint space or bone is not suspected. The patient is to elevate his lower extremities is much as possible, to minimize swelling. He is to follow-up on an outpatient basis in 1 week. Total time: 28 minutes
== END 2023-05-27 23:59 | disposition home or self-care (01) ==
LOC: WC 10:00
PROVIDERS: PCP Preventive Medicine Occupational Medicine; Referring Provider Specialist; Visit Provider Surgery
DX: L89.893 Pressure ulcer of other site, stage 3 (principal); I48.11 Longstanding persistent atrial fibrillation; I48.92 Unspecified atrial flutter; I49.5 Sick sinus syndrome; M25.561 Pain in right knee; Z87.891 Personal history of nicotine dependence; Z95.0 Presence of cardiac pacemaker; I10 Essential (primary) hypertension; Z96.643 Presence of artificial hip joint, bilateral; Z96.653 Presence of artificial knee joint, bilateral; Z79.899 Other long term (current) drug therapy; Z79.01 Long term (current) use of anticoagulants
CPT/HCPCS: 11042; 87070; 87075; 87077; 87186; 87205; 99213; G0463

== ENCOUNTER 2023-06-21 10:45 | Outpatient (RCR) | payer MEDICARE, SELFPAY ==
[2023-05-28 01:40] VITALS: BP 144/52; PULSE 60; RESP 20; TEMP 36.2
[2023-06-01 14:00] VITALS: BP 149/48; PULSE 60; RESP 16; TEMP 36.2
--- NOTE | 2023-06-01 15:55 | PCM.WC.HP ---
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 The patient has been undergoing recent physical therapy for issues related to his right knee. He was placed in a right knee brace, and was instructed to leave it in place, without removing. The brace was in place for approximately 5 weeks, when the patient began to complain of pain on the lateral aspect of his right knee. The brace was removed, and the patient was found to have a pressure ulceration on the lateral aspect of his right knee which appears to be a stage III pressure ulcer. The patient has been referred for evaluation and management. The patient is on Xarelto, and has a history of atrial fibrillation. The patient ambulates in limited fashion, requiring a walker. He sleeps flat at night. His history is negative for myocardial infarction, cerebrovascular accident, renal disease, pulmonary disease, thyroid disease, and hyperlipidemia. He has previously undergone bilateral hip replacement surgery, as well as bilateral knee replacement procedures. He has an indwelling pacemaker. [facility] Medical History Basal cell carcinoma (BCC) of face Essential (primary) hypertension Longstanding persistent atrial fibrillation Nonrheumatic aortic (valve) insufficiency Nonrheumatic aortic valve insufficiency Nonrheumatic mitral (valve) insufficiency Nonrheumatic mitral (valve) insufficiency Paroxysmal atrial flutter Pressure ulcer Sick sinus syndrome Tobacco abuse Tobacco abuse counseling Home Medications fluticasone propionate 50 mcg/actuation nasal spray,suspension 1 spray NASAL DAILY PRN Nasal Congestion 08/04/17 [History Last Taken Unknown] sennosides 8.6 mg-docusate sodium 50 mg tablet 2 tab PO BID PRN Constipation 08/04/17 [History Last Taken Unknown] multivitamin 1 cap PO QDAY 12/23/17 [History Last Taken Unknown] alprazolam 1 mg tablet 1 mg PO DAILY PRN aniexty 04/24/20 [History Last Taken Unknown] doxazosin 4 mg tablet 4 mg PO DAILY #90 tabs 01/25/22 [Rx Last Taken Unknown] ramipril 5 mg capsule See Rx Instructions .Route .COMPLEX #90 caps 12/09/22 [Rx Last Taken Unknown] triamterene 75 mg-hydrochlorothiazide 50 mg tablet 1 tab PO DAILY 05/26/23 [History Last Taken Unknown] Allergy/AdvReac Type Severity Reaction Status Date / Time No Known Allergies Allergy Verified 05/26/23 15:24 Family History Father Cancer Stomach Cancer Surgical History History of bilateral hip replacements History of bilateral knee replacement 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) Pacemaker Social History Smoking Status: Former smoker alcohol intake: never substance use type: does not use what type of physical activity do you participate in: none Vital Signs Vital Signs Vital Signs: 06/01/23 14:00 Temperature 97.2 F L Temperature Source Temporal Pulse Rate 60 Respiratory Rate 16 Blood Pressure 149/48 H Blood Pressure Mean 81 Blood Pressure Source Monitor Blood Pressure Position Sitting Blood Pressure Location Left Arm Oxygen Delivery Method Room Air Physical Exam Const alert, oriented x3, no apparent distress and well nourished Constitutional Narrative: The patient is of normal body habitus, with a BMI of approximately 24.7. General Appearance: cooperative, comfortable, well kempt and well developed Orientation / Consciousness: awake, oriented to person, oriented to place and oriented to time HEENT normocephalic, head/scalp atraumatic and hearing grossly normal bilaterally Head and Scalp: normal to inspection, normocephalic and atraumatic External Ear: external ears normal Eyes PERRL and EOMs intact bilaterally General Eye: normal appearance of both eyes Neck full ROM Resp normal respiratory effort, normal air movement, no retractions and no use of accessory muscles Effort and Inspection: able to speak in complete sentences and symmetric chest movement Extremity no calf tenderness General Extremity: Negative for clubbing or cyanosis Skin Wound Narrative: A pressure ulcer is noted on the right lateral knee. There is a large amount of frankly necrotic tissue. There is a faint rim of erythema. Dimensions are documented elsewhere. There is no drainage. There is no odor. Mild swelling is noted in the distal right lower extremity. Neuro oriented x3, CN's II-XII intact bilaterally and moves all extremities Sensorium / Orientation: awake, alert, oriented to person, oriented to place and oriented to time Psych Appearance: grossly normal and appropriate Attitude: calm Activity / Motor Behavior: appropriate eye contact Speech: normal speech Mood & Affect: euthymic mood Thought Process: normal thought process Thought Content: normal thought content Attention / Concentration: attention grossly intact Debridement Note Debridement Note Wound debrided: Stage III pressure ulceration, right lateral knee Laterality: Right Type of Debridement: Excisional debridement Anesthesia Used: 5% Lidocaine Gel Depth: Down to and including healthy tissue and in the subcutaneous layer Percentage of wound debrided: 100 Instrument Used: 5mm curette, #15 blade and Forceps Severity: Fat Layer Exposed Amount of bleeding with debridement: Mild Bleeding Controlled with: Compression and gauze Patient tolerated procedure: Patient tolerated procedure well Debridement Free Text: The pressure ulceration on the right lateral knee consists of persisting gangrenous, necrotic tissue. A large amount of the gangrenous material was removed by means of excisional debridement today using a 5 mm curette. Post-Debridement Measurements and Additional Note: Post-Debridement Measurements/Treatment - Nurse 1 - General Ulcer Assessment Start: 06/01/23 14:00 Freq: Status: Active Protocol: WC.SHIRIN Activity Type Activity Date Activity User E-sign Co-sign Detail Recorded Client Recorded Date Recorded By Document 06/01/23 14:00 [id number] 06/01/23 14:13 06/01/23 14:00 - Today's Visit Information Type of service Follow-up Visit (Physician/SCHOOL OFFICE ASSISTANT ) Arrival Mode Ambulatory, Walker Accompanied by Patient Identification Verified (Name & Yes ) Vital Signs Temperature (97.8 F-99.1 F) 97.2 F L Temperature Source Temporal Pulse Rate (60-100) 60 Pulse Location Monitor Respiratory Rate (12-18) 16 Respiratory rate source Observation Oxygen Delivery Method Room Air Blood Pressure (90/60-120/80) 149/48 H Blood Pressure Mean 81 Source Monitor Position Sitting Blood Pressure Location Left Arm History Since Last Visit- (Skip if this is Patient's initial visit) Have you changed medications since your No last visit? Any new allergies or adverse reactions No Had a fall/change in ADL's that may No increase risk of falls Signs or symptoms of abuse and/or No neglect since last visit Have you been in the hospital since your Yes last visit? Has dressing in place as prescribed Yes Has compression in place as prescribed No Has offloadiing in place as prescribed No Experienced any changes in pain level or No management Left Footwear Regular Shoe Right Footwear Regular Shoe Pain Scale: 0-10 Numeric Is Patient Pain Free? Yes - Nurse 1 - General Ulcer Measurement Start: 06/01/23 14:00 Freq: Status: Active Protocol: Activity Type Activity Date Activity User E-sign Co-sign Detail Recorded Client Recorded Date Recorded By Document 06/01/23 14:00 [id number] 06/01/23 14:13 06/01/23 14:00 Wound Center Nurse 1 #1 R Knee -Current Size (cm) - Length 1.6 -Current Size (cm) - Width 1.5 -Current Size (cm) - Depth 0.1 -Total Square Cm 2.40 -Photo Taken No -Epithelialization None Present -Tunneling No -Undermining/Tunneling No -Circular Undermining No -Exudate Amt Small -Exudate Type Serosanguineous -Wound Margin Distinct, Outline Attached -Granulation Amt None Present (0 %) -Slough/Fibrin Yes -Necrosis Amt Large (67-100%) -Necrotic Tissue Type Adherent Slough -Texture (Gricel-wound Skin Appearance) Assessed -Moisture (Gricel-wound Skin Appearance) Assessed -Color (Gricel-wound Skin Appearance) Assessed, Erythema -Temperature (Gricel-wound Skin No Abnormality Appearance) (Pt Warm) -Ulcer Cleansing Rinsed/ Irrigated with Saline -Anesthetic Used 5% Lidocaine Gel - Nurse 3 - General Ulcer D/C NN Start: 06/01/23 14:00 Freq: Status: Active Protocol: Activity Type Activity Date Activity User E-sign Co-sign Detail Recorded Client Recorded Date Recorded By Document 06/01/23 14:57 [facility] [id number] 06/01/23 14:59 [facility] 06/01/23 14:57 Wound Care Center Nurse 3 -Ulcer Cleansing Rinsed/ Irrigated with Saline -Foul Odor after Cleansing No -Primary Dressing Applied Mepilex Border -Other Dressing HYDROGEL -Mepilex Border 4 Treatment Response Procedure Tolerated Well Pain Scale: 0-10 Numeric Is Patient Pain Free? Yes - Visit Discharge Discharge Condition Stable Ambulatory Status Ambulatory, Walker Accompanied by Assessment/Plan Assessment/Plan (1) Pressure ulcer: CODE(S): L89.90 - Pressure ulcer of unspecified site, unspecified stage QUALIFIERS: Pressure injury location: knee Pressure injury stage: stage 3 Laterality: right Qualified Code(s): L89.893 - Pressure ulcer of other site, stage 3 (2) History of permanent cardiac pacemaker placement: CODE(S): Z95.0 - Presence of cardiac pacemaker (3) Sick sinus syndrome: CODE(S): I49.5 - Sick sinus syndrome (4) Longstanding persistent atrial fibrillation: CODE(S): I48.11 - Longstanding persistent atrial fibrillation (5) Paroxysmal atrial flutter: CODE(S): I48.92 - Unspecified atrial flutter (6) Essential (primary) hypertension: CODE(S): I10 - Essential (primary) hypertension (7) Tobacco abuse: CODE(S): Z72.0 - Tobacco use (8) Tobacco abuse counseling: CODE(S): Z71.6 - Tobacco abuse counseling (9) Nonrheumatic aortic (valve) insufficiency: CODE(S): I35.1 - Nonrheumatic aortic (valve) insufficiency (10) Nonrheumatic mitral (valve) insufficiency: CODE(S): I34.0 - Nonrheumatic mitral (valve) insufficiency (11) History of bilateral hip replacements: CODE(S): Z96.643 - Presence of artificial hip joint, bilateral (12) History of bilateral knee replacement: CODE(S): Z96.653 - Presence of artificial knee joint, bilateral PLAN: Plan This is an 88-year-old male who presents with a stage III pressure ulceration on the right lateral knee. The ulceration occurred as a result of a knee brace which was worn for 5 weeks, without removal. Upon development of pain on the lateral aspect of the right knee, the brace was removed, revealing the presence of a pressure ulceration. An excisional debridement has been performed today, removing most of the remaining necrotic and gangrenous material. Because of the presence of periulcer erythema, and possible cellulitis, swab cultures were obtained for aerobic and anaerobic bacterial growth. Results revealed the presence of Pseudomonas aeruginosa and an anaerobic cocci. Antibiotic prescriptions were called for the patient last week, which included Levaquin 500 mg p.o. daily for 7 days, and metronidazole 500 mg p.o. 3 times daily for 7 days. The patient presents today, and has been question as to whether he has started the antibiotics. He indicates that he has not, and that he read the literature provided by the pharmacy, and has concerns about potential side effects and adverse effects of the medications. Therefore, he did not start antibiotics. I have reviewed the patient's medical history, medication list, etc. There appears to be no absolute contraindications to the use of these medications. With respect to the coverage for Pseudomonas, Levaquin or Cipro are the only 2 oral agents appropriate for treatment. Otherwise, an intravenous antibiotic would be required. Have spoken briefly with the hospital pharmacist, and no undue contraindications have been identified. Therefore, the patient is to be notified to start the medications as prescribed. It should be acknowledged that there are risks of any medication, but that risks and benefits of medications must be considered. Given the positive cultures, and the failure of the patient's pressure wound to respond to current measures, it is felt that the antibiotic coverage is warranted. Offloading measures are to be continued, and have been discussed with the patient and his . We are to continue the use of collagenase Santyl topically, which will be applied on a daily basis. The patient and his have been instructed in the appropriate means of application. Serial debridements are anticipated. At this juncture, the pressure ulceration appears to be a stage III, and extension into the joint space or bone is not suspected. The patient is to elevate his lower extremities is much as possible, to minimize swelling. He is to follow-up on an outpatient basis in 1 week. Total time: 28 minutes
[2023-06-07 10:51] VITALS: BP 139/76; PULSE 65; RESP 20; TEMP 36.3
--- NOTE | 2023-06-07 11:44 | PCM.WC.HP ---
History of Present Illness Date of Service: 06/07/23 Chief Complaint: Stage III pressure ulceration of the right lateral knee History of Wound: This is an 88-year-old male who presented with a pressure ulceration located on the right lateral knee. The patient has been undergoing recent physical therapy for issues related to his right knee. He was placed in a right knee brace, and was instructed to leave it in place, without removing. The brace was in place for approximately 5 weeks, when the patient began to complain of pain on the lateral aspect of his right knee. The brace was removed, and the patient was found to have a pressure ulceration on the lateral aspect of his right knee which appears to be a stage III pressure ulcer. The patient has been referred for evaluation and management. The patient is on Xarelto, and has a history of atrial fibrillation. The patient ambulates in limited fashion, requiring a walker. He sleeps flat at night. His history is negative for myocardial infarction, cerebrovascular accident, renal disease, pulmonary disease, thyroid disease, and hyperlipidemia. He has previously undergone bilateral hip replacement surgery, as well as bilateral knee replacement procedures. He has an indwelling pacemaker. [facility] Medical History Basal cell carcinoma (BCC) of face Essential (primary) hypertension Longstanding persistent atrial fibrillation Nonrheumatic aortic (valve) insufficiency Nonrheumatic aortic valve insufficiency Nonrheumatic mitral (valve) insufficiency Nonrheumatic mitral (valve) insufficiency Paroxysmal atrial flutter Pressure ulcer Sick sinus syndrome Tobacco abuse Tobacco abuse counseling Home Medications fluticasone propionate 50 mcg/actuation nasal spray,suspension 1 spray NASAL DAILY PRN Nasal Congestion 08/04/17 [History Last Taken Unknown] sennosides 8.6 mg-docusate sodium 50 mg tablet 2 tab PO BID PRN Constipation 08/04/17 [History Last Taken Unknown] multivitamin 1 cap PO QDAY 12/23/17 [History Last Taken Unknown] alprazolam 1 mg tablet 1 mg PO DAILY PRN aniexty 04/24/20 [History Last Taken Unknown] doxazosin 4 mg tablet 4 mg PO DAILY #90 tabs 01/25/22 [Rx Last Taken Unknown] ramipril 5 mg capsule See Rx Instructions .Route .COMPLEX #90 caps 12/09/22 [Rx Last Taken Unknown] triamterene 75 mg-hydrochlorothiazide 50 mg tablet 1 tab PO DAILY 05/26/23 [History Last Taken Unknown] Allergy/AdvReac Type Severity Reaction Status Date / Time No Known Allergies Allergy Verified 05/26/23 15:24 Family History Father Cancer Stomach Cancer Surgical History History of bilateral hip replacements History of bilateral knee replacement 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) Pacemaker Social History Smoking Status: Former smoker alcohol intake: never substance use type: does not use what type of physical activity do you participate in: none Vital Signs Vital Signs Vital Signs: 06/07/23 10:51 Temperature 97.3 F L Temperature Source Temporal Pulse Rate 65 Respiratory Rate 20 H Blood Pressure 139/76 H Blood Pressure Mean 97 Blood Pressure Source Monitor Blood Pressure Position Sitting Blood Pressure Location Left Arm Oxygen Delivery Method Room Air Physical Exam Const alert, oriented x3, no apparent distress and well nourished Constitutional Narrative: The patient is of normal body habitus, with a BMI of approximately 24.7. General Appearance: cooperative, comfortable, well kempt and well developed Orientation / Consciousness: awake, oriented to person, oriented to place and oriented to time HEENT normocephalic, head/scalp atraumatic and hearing grossly normal bilaterally Head and Scalp: normal to inspection, normocephalic and atraumatic External Ear: external ears normal Eyes PERRL and EOMs intact bilaterally General Eye: normal appearance of both eyes Neck full ROM Resp normal respiratory effort, normal air movement, no retractions and no use of accessory muscles Effort and Inspection: able to speak in complete sentences and symmetric chest movement Extremity no calf tenderness General Extremity: Negative for clubbing or cyanosis Skin Wound Narrative: A pressure ulcer is noted on the right lateral knee. There is a large amount of frankly necrotic tissue. There is a faint rim of erythema. Dimensions are documented elsewhere. There is no drainage. There is no odor. Mild swelling is noted in the distal right lower extremity. Neuro oriented x3, CN's II-XII intact bilaterally and moves all extremities Sensorium / Orientation: awake, alert, oriented to person, oriented to place and oriented to time Psych Appearance: grossly normal and appropriate Attitude: calm Activity / Motor Behavior: appropriate eye contact Speech: normal speech Mood & Affect: euthymic mood Thought Process: normal thought process Thought Content: normal thought content Attention / Concentration: attention grossly intact Debridement Note Debridement Note Wound debrided: Stage III pressure ulceration, right lateral knee Laterality: Right Type of Debridement: Excisional debridement Anesthesia Used: 5% Lidocaine Gel Depth: Down to and including healthy tissue and in the subcutaneous layer Percentage of wound debrided: 100 Instrument Used: 5mm curette, #15 blade and Forceps Severity: Fat Layer Exposed Amount of bleeding with debridement: Mild Bleeding Controlled with: Compression and gauze Patient tolerated procedure: Patient tolerated procedure well Debridement Free Text: The pressure ulceration on the right lateral knee consists of persisting gangrenous, necrotic tissue. A large amount of the gangrenous material was removed by means of excisional debridement today using a 5 mm curette. Post-Debridement Measurements and Additional Note: Post-Debridement Measurements/Treatment - Nurse 1 - General Ulcer Assessment Start: 06/01/23 14:00 Freq: Status: Active Protocol: MEG.SHIRIN Activity Type Activity Date Activity User E-sign Co-sign Detail Recorded Client Recorded Date Recorded By Document 06/01/23 14:00 KW [id number] 06/01/23 14:13 KW Document 06/07/23 10:51 MW [id number] 06/07/23 11:01 MW 06/01/23 06/07/23 14:00 10:51 - Today's Visit Information Type of service Follow-up Visit Follow-up Visit (Physician/[employer] (Physician/[employer] ) ) Arrival Mode Ambulatory, Ambulatory, Walker Walker Transfer Assistance None Accompanied by Patient Identification Verified (Name & Yes Yes ) Patient Requires Transmission-Based No Precautions Safety Precautions Fall Prevention Vital Signs Temperature (97.8 F-99.1 F) 97.2 F L 97.3 F L Temperature Source Temporal Temporal Pulse Rate (60-100) 60 65 Pulse Location Monitor Monitor Respiratory Rate (12-18) 16 20 H Respiratory rate source Observation Observation Oxygen Delivery Method Room Air Room Air Blood Pressure (90/60-120/80) 149/48 H 139/76 H Blood Pressure Mean 81 97 Source Monitor Monitor Position Sitting Sitting Blood Pressure Location Left Arm Left Arm History Since Last Visit- (Skip if this is Patient's initial visit) Have you changed medications since your No No last visit? Any new allergies or adverse reactions No No Had a fall/change in ADL's that may No No increase risk of falls Signs or symptoms of abuse and/or No No neglect since last visit Have you been in the hospital since your Yes No last visit? Has dressing in place as prescribed Yes Yes Has compression in place as prescribed No N/A Has offloadiing in place as prescribed No N/A Experienced any changes in pain level or No No management Left Footwear Regular Shoe Regular Shoe Right Footwear Regular Shoe Regular Shoe Pain Scale: 0-10 Numeric Is Patient Pain Free? Yes Yes WC - Nurse 1 - General Ulcer Measurement Start: 06/01/23 14:00 Freq: Status: Active Protocol: Activity Type Activity Date Activity User E-sign Co-sign Detail Recorded Client Recorded Date Recorded By Document 06/01/23 14:00 KW [id number] 06/01/23 14:13 KW Document 06/07/23 10:51 MW [id number] 06/07/23 11:01 MW 06/01/23 06/07/23 14:00 10:51 Wound Center Nurse 1 #1 R Knee -Combined with other wound No -Current Size (cm) - Length 1.6 1.3 -Current Size (cm) - Width 1.5 1.5 -Current Size (cm) - Depth 0.1 0.3 -Total Square Cm 2.40 1.95 -Date of Last Picture (Recall this 06/07/23 field) -Photo Taken No Yes -Epithelialization None Present None Present -Tunneling No No -Undermining/Tunneling No No -Circular Undermining No No -Exudate Amt Small Medium -Exudate Type Serosanguineous Serosanguineous -Wound Margin Distinct, Distinct, Outline Outline Attached Attached -Granulation Amt None Present (0 None Present (0 %) %) -Granulation Quality N/A -Slough/Fibrin Yes Yes -Necrosis Amt Large (67-100%) Large (67-100%) -Necrotic Tissue Type Adherent Slough Adherent Slough -Structure Exposed N/A -Texture (Gricel-wound Skin Appearance) Assessed Not Assessed -Moisture (Gricel-wound Skin Appearance) Assessed No Abnormality, Assessed -Color (Gricel-wound Skin Appearance) Assessed, No Abnormality, Erythema Assessed -Temperature (Gricel-wound Skin No Abnormality No Abnormality Appearance) (Pt Warm) (Pt Warm) -Tenderness on Palpation (Gricel-wound No Skin Appearance) -Ulcer Cleansing Rinsed/ Rinsed/ Irrigated with Irrigated with Saline Saline -Foul Odor after Cleansing No -Anesthetic Used 5% Lidocaine 5% Lidocaine Gel Gel Lower Limb Edema Present Yes Right Calf (cm) 32.5 Right Ankle (cm) 26.0 WC - Nurse 2 - General Ulcer CM Notes Start: 06/01/23 14:00 Freq: Status: Active Protocol: Activity Type Activity Date Activity User E-sign Co-sign Detail Recorded Client Recorded Date Recorded By Document 06/01/23 16:16 PL [id number] 06/01/23 16:17 PL 06/01/23 16:16 Wound Center Nurse 2 #1 R Knee -Time 14:32 -Correct Patient Yes -Correct Side, Site, Position Yes -Correct Procedure Yes -Procedure Performed Yes -Type of Procedure Debridement -Clinical Debridement Subcutaneous -Tissue Removed Subcutaneous -Post Debridement (cm) - Length 1.6 -Post Debridement (cm) - Width 1.5 -Post Debridement (cm) - Depth 0.1 -Total Square (Post) (cm) 2.40 -Area of Debridement (cm) - Length 1.6 -Area of Debridement (cm) - Width 1.5 -Total Square (Area) (cm) 2.40 -Tunneling No -Undermining/Tunneling No -Circular Undermining No -Wound/Ulcer Outcome Not Healed -Ulcer Cleansing Rinsed/ Irrigated with Saline -Foul Odor after Cleansing No -Bioengineered Tissue No -Bleeding Controlled with Pressure -Treatment Response Procedure Tolerated Well -Debridement - Subq, 1st 20sq cm Yes Pain Scale: 0-10 Numeric Is Patient Pain Free? Yes WC - Nurse 3 - General Ulcer D/C NN Start: 06/01/23 14:00 Freq: Status: Active Protocol: Activity Type Activity Date Activity User E-sign Co-sign Detail Recorded Client Recorded Date Recorded By Document 06/01/23 14:57 BM [id number] 06/01/23 14:59 BM Document 06/07/23 11:33 [id number] 06/07/23 11:34 MW 06/01/23 06/07/23 14:57 11:33 Wound Care Center Nurse 3 #1 R Knee -Ulcer Cleansing Rinsed/ Rinsed/ Irrigated with Irrigated with Saline Saline -Foul Odor after Cleansing No No -Negative Pressure Wound Therapy N/A -Primary Dressing Applied Mepilex Border Mepilex Border -Other Dressing HYDROGEL Santyl -Mepilex Border 4 3 Treatment Response Procedure Procedure Tolerated Well Tolerated Well Pain Scale: 0-10 Numeric Is Patient Pain Free? Yes Yes Teaching: Wound Center Control Swelling with Leg Elevation -Person Taught Patient -Teaching Method Discussion -Response to teaching Verbalize understanding WC - Visit Discharge Discharge Condition Stable Stable Ambulatory Status Ambulatory, Ambulatory, Walker Walker Transportation Private Auto Accompanied by Medication Reconcilliation completed & No provided to patient/care provider Clinical Summary of Care Provided Yes Assessment/Plan Assessment/Plan (1) Pressure ulcer: CODE(S): L89.90 - Pressure ulcer of unspecified site, unspecified stage QUALIFIERS: Pressure injury location: knee Pressure injury stage: stage 3 Laterality: right Qualified Code(s): L89.893 - Pressure ulcer of other site, stage 3 (2) History of permanent cardiac pacemaker placement: CODE(S): Z95.0 - Presence of cardiac pacemaker (3) Sick sinus syndrome: CODE(S): I49.5 - Sick sinus syndrome (4) Longstanding persistent atrial fibrillation: CODE(S): I48.11 - Longstanding persistent atrial fibrillation (5) Paroxysmal atrial flutter: CODE(S): I48.92 - Unspecified atrial flutter (6) Essential (primary) hypertension: CODE(S): I10 - Essential (primary) hypertension (7) Tobacco abuse: CODE(S): Z72.0 - Tobacco use (8) Tobacco abuse counseling: CODE(S): Z71.6 - Tobacco abuse counseling (9) Nonrheumatic aortic (valve) insufficiency: CODE(S): I35.1 - Nonrheumatic aortic (valve) insufficiency (10) Nonrheumatic mitral (valve) insufficiency: CODE(S): I34.0 - Nonrheumatic mitral (valve) insufficiency (11) History of bilateral hip replacements: CODE(S): Z96.643 - Presence of artificial hip joint, bilateral (12) History of bilateral knee replacement: CODE(S): Z96.653 - Presence of artificial knee joint, bilateral PLAN: Plan This is an 88-year-old male who presented with a stage III pressure ulceration on the right lateral knee. The ulceration occurred as a result of a knee brace which was worn for 5 weeks, without removal. Upon development of pain on the lateral aspect of the right knee, the brace was removed, revealing the presence of a pressure ulceration. An excisional debridement has been performed today, removing a large amount of the remaining necrotic and gangrenous material. Because of the presence of periulcer erythema, and possible cellulitis, swab cultures were obtained recently for aerobic and anaerobic bacterial growth. Results revealed the presence of Pseudomonas aeruginosa and an anaerobic cocci. Antibiotic prescriptions were called for the patient, which included Levaquin 500 mg p.o. daily for 7 days, and metronidazole 500 mg p.o. 3 times daily for 7 days. The patient has now completed the course of both antibiotics. Offloading measures are to be continued, and have been discussed with the patient and his . We are to continue the use of collagenase Santyl topically, which will be applied on a daily basis. The patient and his have been instructed in the appropriate means of application. Serial debridements are anticipated. At this juncture, the pressure ulceration appears to be a stage III, and extension into the joint space or bone is not suspected. The patient is to elevate his lower extremities is much as possible, to minimize swelling. He has also been provided a prescription for graduated compression stockings, knee-high length, of 15 to 20 mmHg compression. These are to be worn on a daily basis. The patient is to follow-up on an outpatient basis in 1 week. Total time: 26 minutes
[2023-06-14 10:39] VITALS: BP 132/45; PULSE 59; RESP 16; TEMP 35.7
--- NOTE | 2023-06-14 11:19 | PCM.WC.HP ---
History of Present Illness Date of Service: 06/14/23 Chief Complaint: Stage III pressure ulceration of the right lateral knee History of Wound: This is an 88-year-old male who presented with a pressure ulceration located on the right lateral knee. The patient has been undergoing recent physical therapy for issues related to his right knee. He was placed in a right knee brace, and was instructed to leave it in place, without removing. The brace was in place for approximately 5 weeks, when the patient began to complain of pain on the lateral aspect of his right knee. The brace was removed, and the patient was found to have a pressure ulceration on the lateral aspect of his right knee which appears to be a stage III pressure ulcer. The patient has been referred for evaluation and management. The patient is on Xarelto, and has a history of atrial fibrillation. The patient ambulates in limited fashion, requiring a walker. He sleeps flat at night. His history is negative for myocardial infarction, cerebrovascular accident, renal disease, pulmonary disease, thyroid disease, and hyperlipidemia. He has previously undergone bilateral hip replacement surgery, as well as bilateral knee replacement procedures. He has an indwelling pacemaker. FOR[facility]LY [facility], LATER [facility] Medical History Basal cell carcinoma (BCC) of face Essential (primary) hypertension Longstanding persistent atrial fibrillation Nonrheumatic aortic (valve) insufficiency Nonrheumatic aortic valve insufficiency Nonrheumatic mitral (valve) insufficiency Nonrheumatic mitral (valve) insufficiency Paroxysmal atrial flutter Pressure ulcer Sick sinus syndrome Tobacco abuse Tobacco abuse counseling Home Medications fluticasone propionate 50 mcg/actuation nasal spray,suspension 1 spray NASAL DAILY PRN Nasal Congestion 08/04/17 [History Last Taken Unknown] sennosides 8.6 mg-docusate sodium 50 mg tablet 2 tab PO BID PRN Constipation 08/04/17 [History Last Taken Unknown] multivitamin 1 cap PO QDAY 12/23/17 [History Last Taken Unknown] alprazolam 1 mg tablet 1 mg PO DAILY PRN aniexty 04/24/20 [History Last Taken Unknown] doxazosin 4 mg tablet 4 mg PO DAILY #90 tabs 01/25/22 [Rx Last Taken Unknown] ramipril 5 mg capsule See Rx Instructions .Route .COMPLEX #90 caps 12/09/22 [Rx Last Taken Unknown] triamterene 75 mg-hydrochlorothiazide 50 mg tablet 1 tab PO DAILY 05/26/23 [History Last Taken Unknown] paroxetine HCl 10 mg tablet (Paxil) 10 mg PO DAILY 06/14/23 [History Last Taken Unknown] Allergy/AdvReac Type Severity Reaction Status Date / Time No Known Allergies Allergy Verified 05/26/23 15:24 Family History Father Cancer Stomach Cancer Surgical History History of bilateral hip replacements History of bilateral knee replacement 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) Pacemaker Social History Smoking Status: Former smoker alcohol intake: never substance use type: does not use what type of physical activity do you participate in: none Vital Signs Vital Signs Vital Signs: 06/14/23 10:39 Temperature 96.2 F L Temperature Source Temporal Pulse Rate 59 L Respiratory Rate 16 Blood Pressure 132/45 H Blood Pressure Mean 74 Blood Pressure Source Monitor Blood Pressure Position Sitting Blood Pressure Location Left Arm Oxygen Delivery Method Room Air Physical Exam Const alert, oriented x3, no apparent distress and well nourished Constitutional Narrative: The patient is of normal body habitus, with a BMI of approximately 24.7. General Appearance: cooperative, comfortable, well kempt and well developed Orientation / Consciousness: awake, oriented to person, oriented to place and oriented to time HEENT normocephalic, head/scalp atraumatic and hearing grossly normal bilaterally Head and Scalp: normal to inspection, normocephalic and atraumatic External Ear: external ears normal Eyes PERRL and EOMs intact bilaterally General Eye: normal appearance of both eyes Neck full ROM Resp normal respiratory effort, normal air movement, no retractions and no use of accessory muscles Effort and Inspection: able to speak in complete sentences and symmetric chest movement Extremity no calf tenderness General Extremity: Negative for clubbing or cyanosis Skin Wound Narrative: A pressure ulcer is noted on the right lateral knee. There is a moderate amount of nonviable and necrotic tissue, though decreasing in amount in recent weeks. There is a faint rim of erythema. Dimensions are documented elsewhere. There is no drainage. There is no odor. There is no sign of infection or cellulitis. Mild swelling is noted in the distal right lower extremity. Neuro oriented x3, CN's II-XII intact bilaterally, moves all extremities and no focal motor deficits Sensorium / Orientation: awake, alert, oriented to person, oriented to place and oriented to time Psych Appearance: grossly normal and appropriate Attitude: calm Activity / Motor Behavior: appropriate eye contact Speech: normal speech Mood & Affect: euthymic mood Thought Process: normal thought process Thought Content: normal thought content Attention / Concentration: attention grossly intact Debridement Note Debridement Note Wound debrided: Stage III pressure ulceration, right lateral knee Laterality: Right Type of Debridement: Excisional debridement Anesthesia Used: 5% Lidocaine Gel Depth: Down to and including healthy tissue and in the subcutaneous layer Percentage of wound debrided: 100 Instrument Used: 5mm curette Severity: Fat Layer Exposed Amount of bleeding with debridement: Mild Bleeding Controlled with: Compression and gauze Patient tolerated procedure: Patient tolerated procedure well Debridement Free Text: Post-Debridement Measurements and Additional Note: Post-Debridement Measurements/Treatment - Nurse 1 - General Ulcer Assessment Start: 06/01/23 14:00 Freq: Status: Active Protocol: ALICIA Activity Type Activity Date Activity User E-sign Co-sign Detail Recorded Client Recorded Date Recorded By Document 06/01/23 14:00 KW [id number] 06/01/23 14:13 KW Document 06/07/23 10:51 MW [id number] 06/07/23 11:01 MW Document 06/14/23 10:39 KW [id number] 06/14/23 11:02 KW 06/01/23 06/07/23 06/14/23 14:00 10:51 10:39 - Today's Visit Information Type of service Follow-up Visit Follow-up Visit Follow-up Visit (Physician/LOFT WORKER APPRENTICE (Physician/LOFT WORKER APPRENTICE (Physician/LOFT WORKER APPRENTICE ) ) ) Arrival Mode Ambulatory, Ambulatory, Ambulatory, Walker Walker Walker Transfer Assistance None Accompanied by Patient Identification Verified (Name & Yes Yes Yes ) Patient Requires Transmission-Based No Precautions Safety Precautions Fall Prevention Vital Signs Temperature (97.8 F-99.1 F) 97.2 F L 97.3 F L 96.2 F L Temperature Source Temporal Temporal Temporal Pulse Rate (60-100) 60 65 59 L Pulse Location Monitor Monitor Monitor Respiratory Rate (12-18) 16 20 H 16 Respiratory rate source Observation Observation Observation Oxygen Delivery Method Room Air Room Air Room Air Blood Pressure (90/60-120/80) 149/48 H 139/76 H 132/45 H Blood Pressure Mean 81 97 74 Source Monitor Monitor Monitor Position Sitting Sitting Sitting Blood Pressure Location Left Arm Left Arm Left Arm History Since Last Visit- (Skip if this is Patient's initial visit) Have you changed medications since your No No Yes last visit? Any new allergies or adverse reactions No No No Had a fall/change in ADL's that may No No No increase risk of falls Signs or symptoms of abuse and/or No No No neglect since last visit Have you been in the hospital since your Yes No No last visit? Has dressing in place as prescribed Yes Yes Yes Has compression in place as prescribed No N/A No Has offloadiing in place as prescribed No N/A Experienced any changes in pain level or No No management Left Footwear Regular Shoe Regular Shoe Regular Shoe Right Footwear Regular Shoe Regular Shoe Regular Shoe Pain Scale: 0-10 Numeric Is Patient Pain Free? Yes Yes Yes WC - Nurse 1 - General Ulcer Measurement Start: 06/01/23 14:00 Freq: Status: Active Protocol: Activity Type Activity Date Activity User E-sign Co-sign Detail Recorded Client Recorded Date Recorded By Document 06/01/23 14:00 KW [id number] 06/01/23 14:13 KW Document 06/07/23 10:51 MW [id number] 06/07/23 11:01 MW Document 06/14/23 10:39 KW [id number] 06/14/23 11:02 KW 06/01/23 06/07/23 06/14/23 14:00 10:51 10:39 Wound Center Nurse 1 #1 R Knee -Combined with other wound No -Current Size (cm) - Length 1.6 1.3 1.5 -Current Size (cm) - Width 1.5 1.5 1.2 -Current Size (cm) - Depth 0.1 0.3 0.3 -Total Square Cm 2.40 1.95 1.80 -Date of Last Picture (Recall this 06/07/23 field) -Photo Taken No Yes -Epithelialization None Present None Present Small 1-33% -Tunneling No No No -Undermining/Tunneling No No No -Circular Undermining No No No -Exudate Amt Small Medium Small -Exudate Type Serosanguineous Serosanguineous Serosanguineous -Wound Margin Distinct, Distinct, Distinct, Outline Outline Outline Attached Attached Attached -Granulation Amt None Present (0 None Present (0 Medium (34-66%) %) %) -Granulation Quality N/A Red -Slough/Fibrin Yes Yes -Necrosis Amt Large (67-100%) Large (67-100%) Medium (34-66%) -Necrotic Tissue Type Adherent Slough Adherent Slough Adherent Slough -Structure Exposed N/A -Texture (Gricel-wound Skin Appearance) Assessed Not Assessed Assessed -Moisture (Gricel-wound Skin Appearance) Assessed No Abnormality, Assessed Assessed -Color (Gricel-wound Skin Appearance) Assessed, No Abnormality, Assessed Erythema Assessed -Temperature (Gricel-wound Skin No Abnormality No Abnormality No Abnormality Appearance) (Pt Warm) (Pt Warm) (Pt Warm) -Tenderness on Palpation (Gricel-wound No Skin Appearance) -Ulcer Cleansing Rinsed/ Rinsed/ Rinsed/ Irrigated with Irrigated with Irrigated with Saline Saline Saline -Foul Odor after Cleansing No No -Anesthetic Used 5% Lidocaine 5% Lidocaine 5% Lidocaine Gel Gel Gel Lower Limb Edema Present Yes Right Calf (cm) 32.5 Right Ankle (cm) 26.0 WC - Nurse 2 - General Ulcer CM Notes Start: 06/01/23 14:00 Freq: Status: Active Protocol: Activity Type Activity Date Activity User E-sign Co-sign Detail Recorded Client Recorded Date Recorded By Document 06/01/23 16:16 [id number] 06/01/23 16:17 Document 06/07/23 11:53 [id number] 06/07/23 11:54 PL 06/01/23 06/07/23 16:16 11:53 Wound Center Nurse 2 #1 R Knee -Time 14:32 11:14 -Correct Patient Yes Yes -Correct Side, Site, Position Yes Yes -Correct Procedure Yes Yes -Procedure Performed Yes Yes -Type of Procedure Debridement Debridement -Clinical Debridement Subcutaneous Subcutaneous -Tissue Removed Subcutaneous Subcutaneous -Post Debridement (cm) - Length 1.6 1.3 -Post Debridement (cm) - Width 1.5 1.5 -Post Debridement (cm) - Depth 0.1 0.3 -Total Square (Post) (cm) 2.40 1.95 -Area of Debridement (cm) - Length 1.6 1.3 -Area of Debridement (cm) - Width 1.5 1.5 -Total Square (Area) (cm) 2.40 1.95 -Tunneling No No -Undermining/Tunneling No No -Circular Undermining No No -Wound/Ulcer Outcome Not Healed Not Healed -Ulcer Cleansing Rinsed/ Rinsed/ Irrigated with Irrigated with Saline Saline -Foul Odor after Cleansing No No -Bioengineered Tissue No No -Bleeding Controlled with Pressure Pressure -Treatment Response Procedure Procedure Tolerated Well Tolerated Well -Debridement - Subq, 1st 20sq cm Yes Yes Pain Scale: 0-10 Numeric Is Patient Pain Free? Yes Yes - Nurse 3 - General Ulcer D/C NN Start: 06/01/23 14:00 Freq: Status: Active Protocol: Activity Type Activity Date Activity User E-sign Co-sign Detail Recorded Client Recorded Date Recorded By Document 06/01/23 14:57 [facility] [id number] 06/01/23 14:59 BMF Document 06/07/23 11:33 MW [id number] 06/07/23 11:34 MW 06/01/23 06/07/23 14:57 11:33 Wound Care Center Nurse 3 #1 R Knee -Ulcer Cleansing Rinsed/ Rinsed/ Irrigated with Irrigated with Saline Saline -Foul Odor after Cleansing No No -Negative Pressure Wound Therapy N/A -Primary Dressing Applied Mepilex Border Mepilex Border -Other Dressing HYDROGEL Santyl -Mepilex Border 4 3 Treatment Response Procedure Procedure Tolerated Well Tolerated Well Pain Scale: 0-10 Numeric Is Patient Pain Free? Yes Yes Teaching: Wound Center Control Swelling with Leg Elevation -Person Taught Patient -Teaching Method Discussion -Response to teaching Verbalize understanding WC - Visit Discharge Discharge Condition Stable Stable Ambulatory Status Ambulatory, Ambulatory, Walker Walker Transportation Private Auto Accompanied by Medication Reconcilliation completed & No provided to patient/care provider Clinical Summary of Care Provided Yes Assessment/Plan Assessment/Plan (1) Pressure ulcer: CODE(S): L89.90 - Pressure ulcer of unspecified site, unspecified stage QUALIFIERS: Pressure injury location: knee Pressure injury stage: stage 3 Laterality: right Qualified Code(s): L89.893 - Pressure ulcer of other site, stage 3 (2) History of permanent cardiac pacemaker placement: CODE(S): Z95.0 - Presence of cardiac pacemaker (3) Sick sinus syndrome: CODE(S): I49.5 - Sick sinus syndrome (4) Longstanding persistent atrial fibrillation: CODE(S): I48.11 - Longstanding persistent atrial fibrillation (5) Paroxysmal atrial flutter: CODE(S): I48.92 - Unspecified atrial flutter (6) Essential (primary) hypertension: CODE(S): I10 - Essential (primary) hypertension (7) Tobacco abuse: CODE(S): Z72.0 - Tobacco use (8) Tobacco abuse counseling: CODE(S): Z71.6 - Tobacco abuse counseling (9) Nonrheumatic aortic (valve) insufficiency: CODE(S): I35.1 - Nonrheumatic aortic (valve) insufficiency (10) Nonrheumatic mitral (valve) insufficiency: CODE(S): I34.0 - Nonrheumatic mitral (valve) insufficiency (11) History of bilateral hip replacements: CODE(S): Z96.643 - Presence of artificial hip joint, bilateral (12) History of bilateral knee replacement: CODE(S): Z96.653 - Presence of artificial knee joint, bilateral PLAN: Plan This is an 88-year-old male who presented with a stage III pressure ulceration on the right lateral knee. The ulceration occurred as a result of a knee brace which was worn for 5 weeks, without removal. Upon development of pain on the lateral aspect of the right knee, the brace was removed, revealing the presence of a pressure ulceration. An excisional debridement has been performed today, removing some additional necrotic and gangrenous material. The pressure ulceration now exhibits an increasing amount of pink, healthy, granulation tissue. There has been improvement in the appearance of the ulceration in recent weeks. Offloading measures are to be continued, and have been discussed with the patient and his . We are to continue the use of collagenase Santyl topically, which will be applied on a daily basis. The patient and his have been instructed in the appropriate means of application. Serial debridements are anticipated. The pressure ulceration appears to be a stage III, and extension into the joint space or bone is not suspected. The patient is to elevate his lower extremities is much as possible, to minimize swelling. He has also been provided a prescription for graduated compression stockings, knee-high length, of 15 to 20 mmHg compression. These are to be worn on a daily basis. The patient is to follow-up on an outpatient basis in 1 week. Total time: 24 minutes
[2023-06-21 10:46] VITALS: BP 148/48; PULSE 60; RESP 20; TEMP 36.3
--- NOTE | 2023-06-21 12:36 | PCM.WC.HP ---
History of Present Illness Date of Service: 06/21/23 Chief Complaint: Stage III pressure ulceration of the right lateral knee History of Wound: This is an 88-year-old male who presented with a pressure ulceration located on the right lateral knee. The patient has been undergoing recent physical therapy for issues related to his right knee. He was placed in a right knee brace, and was instructed to leave it in place, without removing. The brace was in place for approximately 5 weeks, when the patient began to complain of pain on the lateral aspect of his right knee. The brace was removed, and the patient was found to have a pressure ulceration on the lateral aspect of his right knee which appears to be a stage III pressure ulcer. The patient has been referred for evaluation and management. The patient is on Xarelto, and has a history of atrial fibrillation. The patient ambulates in limited fashion, requiring a walker. He sleeps flat at night. His history is negative for myocardial infarction, cerebrovascular accident, renal disease, pulmonary disease, thyroid disease, and hyperlipidemia. He has previously undergone bilateral hip replacement surgery, as well as bilateral knee replacement procedures. He has an indwelling pacemaker. [facility] Medical History Basal cell carcinoma (BCC) of face Essential (primary) hypertension Longstanding persistent atrial fibrillation Nonrheumatic aortic (valve) insufficiency Nonrheumatic aortic valve insufficiency Nonrheumatic mitral (valve) insufficiency Nonrheumatic mitral (valve) insufficiency Paroxysmal atrial flutter Pressure ulcer Sick sinus syndrome Tobacco abuse Tobacco abuse counseling Home Medications fluticasone propionate 50 mcg/actuation nasal spray,suspension 1 spray NASAL DAILY PRN Nasal Congestion 08/04/17 [History Last Taken Unknown] sennosides 8.6 mg-docusate sodium 50 mg tablet 2 tab PO BID PRN Constipation 08/04/17 [History Last Taken Unknown] multivitamin 1 cap PO QDAY 12/23/17 [History Last Taken Unknown] alprazolam 1 mg tablet 1 mg PO DAILY PRN aniexty 04/24/20 [History Last Taken Unknown] doxazosin 4 mg tablet 4 mg PO DAILY #90 tabs 01/25/22 [Rx Last Taken Unknown] ramipril 5 mg capsule See Rx Instructions .Route .COMPLEX #90 caps 12/09/22 [Rx Last Taken Unknown] triamterene 75 mg-hydrochlorothiazide 50 mg tablet 1 tab PO DAILY 05/26/23 [History Last Taken Unknown] paroxetine HCl 10 mg tablet (Paxil) 10 mg PO DAILY 06/14/23 [History Last Taken Unknown] Allergy/AdvReac Type Severity Reaction Status Date / Time No Known Allergies Allergy Verified 05/26/23 15:24 Family History Father Cancer Stomach Cancer Surgical History History of bilateral hip replacements History of bilateral knee replacement 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) Pacemaker Social History Smoking Status: Former smoker alcohol intake: never substance use type: does not use what type of physical activity do you participate in: none Vital Signs Vital Signs Vital Signs: 06/21/23 10:46 Temperature 97.4 F L Temperature Source Temporal Pulse Rate 60 Respiratory Rate 20 H Blood Pressure 148/48 H Blood Pressure Mean 81 Blood Pressure Source Monitor Physical Exam Const alert, oriented x3, no apparent distress and well nourished Constitutional Narrative: The patient is of normal body habitus, with a BMI of approximately 24.7. General Appearance: cooperative, comfortable, well kempt and well developed Orientation / Consciousness: awake, oriented to person, oriented to place and oriented to time HEENT normocephalic, head/scalp atraumatic and hearing grossly normal bilaterally Head and Scalp: normal to inspection, normocephalic and atraumatic External Ear: external ears normal Eyes PERRL and EOMs intact bilaterally General Eye: normal appearance of both eyes Neck full ROM Resp normal respiratory effort, normal air movement, no retractions and no use of accessory muscles Effort and Inspection: able to speak in complete sentences and symmetric chest movement Extremity no calf tenderness General Extremity: Negative for clubbing or cyanosis Skin Wound Narrative: A pressure ulcer is noted on the right lateral knee. There is a small amount of nonviable and necrotic tissue, though decreasing in amount in recent weeks. Dimensions are documented elsewhere. There is no drainage. There is no odor. There is no sign of infection or cellulitis. Mild swelling is noted in the distal right lower extremity. Neuro oriented x3, CN's II-XII intact bilaterally, moves all extremities and no focal motor deficits Sensorium / Orientation: awake, alert, oriented to person, oriented to place and oriented to time Psych Appearance: grossly normal and appropriate Attitude: calm Activity / Motor Behavior: appropriate eye contact Speech: normal speech Mood & Affect: euthymic mood Thought Process: normal thought process Thought Content: normal thought content Attention / Concentration: attention grossly intact Debridement Note Debridement Note Wound debrided: Stage III pressure ulceration, right lateral knee Laterality: Right Type of Debridement: Excisional debridement Anesthesia Used: 5% Lidocaine Gel Depth: Down to and including healthy tissue and in the subcutaneous layer Percentage of wound debrided: 100 Instrument Used: 5mm curette Severity: Fat Layer Exposed Amount of bleeding with debridement: Mild Bleeding Controlled with: Compression and gauze Patient tolerated procedure: Patient tolerated procedure well Debridement Free Text: Post-Debridement Measurements and Additional Note: Post-Debridement Measurements/Treatment - Nurse 1 - General Ulcer Assessment Start: 06/01/23 14:00 Freq: Status: Active Protocol: ALICIA Activity Type Activity Date Activity User E-sign Co-sign Detail Recorded Client Recorded Date Recorded By Document 06/01/23 14:00 KW [id number] 06/01/23 14:13 KW Document 06/07/23 10:51 MW [id number] 06/07/23 11:01 MW Document 06/14/23 10:39 KW [id number] 06/14/23 11:02 KW Document 06/21/23 10:46 DL [id number] 06/21/23 11:04 DL 06/01/23 06/07/23 06/14/23 14:00 10:51 10:39 - Today's Visit Information Type of service Follow-up Visit Follow-up Visit Follow-up Visit (Physician/PROFESSIONAL DEVELOPMENT INSTRUCTOR (Physician/PROFESSIONAL DEVELOPMENT INSTRUCTOR (Physician/PROFESSIONAL DEVELOPMENT INSTRUCTOR ) ) ) Arrival Mode Ambulatory, Ambulatory, Ambulatory, Walker Walker Walker Transfer Assistance None Accompanied by Patient Identification Verified (Name & Yes Yes Yes ) Patient Requires Transmission-Based No Precautions Safety Precautions Fall Prevention Vital Signs Temperature (97.8 F-99.1 F) 97.2 F L 97.3 F L 96.2 F L Temperature Source Temporal Temporal Temporal Pulse Rate (60-100) 60 65 59 L Pulse Location Monitor Monitor Monitor Respiratory Rate (12-18) 16 20 H 16 Respiratory rate source Observation Observation Observation Oxygen Delivery Method Room Air Room Air Room Air Blood Pressure (90/60-120/80) 149/48 H 139/76 H 132/45 H Blood Pressure Mean 81 97 74 Source Monitor Monitor Monitor Position Sitting Sitting Sitting Blood Pressure Location Left Arm Left Arm Left Arm History Since Last Visit- (Skip if this is Patient's initial visit) Have you changed medications since your No No Yes last visit? Any new allergies or adverse reactions No No No Had a fall/change in ADL's that may No No No increase risk of falls Signs or symptoms of abuse and/or No No No neglect since last visit Have you been in the hospital since your Yes No No last visit? Has dressing in place as prescribed Yes Yes Yes Has compression in place as prescribed No N/A No Has offloadiing in place as prescribed No N/A Experienced any changes in pain level or No No management Left Footwear Regular Shoe Regular Shoe Regular Shoe Right Footwear Regular Shoe Regular Shoe Regular Shoe Pain Scale: 0-10 Numeric Is Patient Pain Free? Yes Yes Yes 06/21/23 10:46 WC - Today's Visit Information Type of service Follow-up Visit (Physician/PROFESSIONAL DEVELOPMENT INSTRUCTOR ) Arrival Mode Ambulatory Transfer Assistance None Accompanied by Patient Identification Verified (Name & Yes ) Patient Requires Transmission-Based No Precautions Safety Precautions Vital Signs Temperature (97.8 F-99.1 F) 97.4 F L Temperature Source Temporal Pulse Rate (60-100) 60 Pulse Location Monitor Respiratory Rate (12-18) 20 H Respiratory rate source Observation Oxygen Delivery Method Blood Pressure (90/60-120/80) 148/48 H Blood Pressure Mean 81 Source Monitor Position Blood Pressure Location History Since Last Visit- (Skip if this is Patient's initial visit) Have you changed medications since your No last visit? Any new allergies or adverse reactions No Had a fall/change in ADL's that may No increase risk of falls Signs or symptoms of abuse and/or No neglect since last visit Have you been in the hospital since your No last visit? Has dressing in place as prescribed Yes Has compression in place as prescribed N/A Has offloadiing in place as prescribed N/A Experienced any changes in pain level or No management Left Footwear Right Footwear Pain Scale: 0-10 Numeric Is Patient Pain Free? Yes WC - Nurse 1 - General Ulcer Measurement Start: 06/01/23 14:00 Freq: Status: Active Protocol: Activity Type Activity Date Activity User E-sign Co-sign Detail Recorded Client Recorded Date Recorded By Document 06/01/23 14:00 KW [id number] 06/01/23 14:13 KW Document 06/07/23 10:51 MW [id number] 06/07/23 11:01 MW Document 06/14/23 10:39 KW [id number] 06/14/23 11:02 KW Document 06/21/23 10:46 DL [id number] 06/21/23 11:04 DL 06/01/23 06/07/23 06/14/23 14:00 10:51 10:39 Wound Center Nurse 1 #1 R Knee -Combined with other wound No -Current Size (cm) - Length 1.6 1.3 1.5 -Current Size (cm) - Width 1.5 1.5 1.2 -Current Size (cm) - Depth 0.1 0.3 0.3 -Total Square Cm 2.40 1.95 1.80 -Date of Last Picture (Recall this 06/07/23 field) -Photo Taken No Yes -Epithelialization None Present None Present Small 1-33% -Tunneling No No No -Tunneling Position (O'clock) -Tunneling Distance (cm) -Undermining/Tunneling No No No -Circular Undermining No No No -Exudate Amt Small Medium Small -Exudate Type Serosanguineous Serosanguineous Serosanguineous -Wound Margin Distinct, Distinct, Distinct, Outline Outline Outline Attached Attached Attached -Granulation Amt None Present (0 None Present (0 Medium (34-66%) %) %) -Granulation Quality N/A Red -Slough/Fibrin Yes Yes -Necrosis Amt Large (67-100%) Large (67-100%) Medium (34-66%) -Necrotic Tissue Type Adherent Slough Adherent Slough Adherent Slough -Structure Exposed N/A -Texture (Gricel-wound Skin Appearance) Assessed Not Assessed Assessed -Moisture (Gricel-wound Skin Appearance) Assessed No Abnormality, Assessed Assessed -Color (Gricel-wound Skin Appearance) Assessed, No Abnormality, Assessed Erythema Assessed -Temperature (Gricel-wound Skin No Abnormality No Abnormality No Abnormality Appearance) (Pt Warm) (Pt Warm) (Pt Warm) -Tenderness on Palpation (Gricel-wound No Skin Appearance) -Ulcer Cleansing Rinsed/ Rinsed/ Rinsed/ Irrigated with Irrigated with Irrigated with Saline Saline Saline -Foul Odor after Cleansing No No -Anesthetic Used 5% Lidocaine 5% Lidocaine 5% Lidocaine Gel Gel Gel Lower Limb Edema Present Yes Right Calf (cm) 32.5 Right Ankle (cm) 26.0 06/21/23 10:46 Wound Center Nurse 1 #1 R Knee -Combined with other wound -Current Size (cm) - Length 1.2 -Current Size (cm) - Width 1.2 -Current Size (cm) - Depth 0.4 -Total Square Cm 1.44 -Date of Last Picture (Recall this field) -Photo Taken -Epithelialization -Tunneling -Tunneling Position (O'clock) 1 -Tunneling Distance (cm) 0.4 -Undermining/Tunneling -Circular Undermining -Exudate Amt Medium -Exudate Type Serosanguineous -Wound Margin Distinct, Outline Attached -Granulation Amt Medium (34-66%) -Granulation Quality Red -Slough/Fibrin -Necrosis Amt Medium (34-66%) -Necrotic Tissue Type Adherent Slough -Structure Exposed N/A -Texture (Gricel-wound Skin Appearance) Scarring -Moisture (Gricel-wound Skin Appearance) Maceration -Color (Gricel-wound Skin Appearance) No Abnormality -Temperature (Gricel-wound Skin No Abnormality Appearance) (Pt Warm) -Tenderness on Palpation (Gricel-wound No Skin Appearance) -Ulcer Cleansing Soap and Water -Foul Odor after Cleansing No -Anesthetic Used 5% Lidocaine Gel Lower Limb Edema Present Right Calf (cm) Right Ankle (cm) WC - Nurse 2 - General Ulcer CM Notes Start: 06/01/23 14:00 Freq: Status: Active Protocol: Activity Type Activity Date Activity User E-sign Co-sign Detail Recorded Client Recorded Date Recorded By Document 06/01/23 16:16 PL [id number] 06/01/23 16:17 PL Document 06/07/23 11:53 PL [id number] 06/07/23 11:54 PL Document 06/14/23 12:43 PL [id number] 06/14/23 12:45 PL Document 06/21/23 12:02 PL [id number] 06/21/23 12:03 PL 06/01/23 06/07/23 06/14/23 16:16 11:53 12:43 Wound Center Nurse 2 #1 R Knee -Time 14:32 11:14 11:11 -Correct Patient Yes Yes Yes -Correct Side, Site, Position Yes Yes Yes -Correct Procedure Yes Yes Yes -Procedure Performed Yes Yes Yes -Type of Procedure Debridement Debridement Debridement -Clinical Debridement Subcutaneous Subcutaneous Subcutaneous -Tissue Removed Subcutaneous Subcutaneous Subcutaneous -Post Debridement (cm) - Length 1.6 1.3 1.5 -Post Debridement (cm) - Width 1.5 1.5 1.2 -Post Debridement (cm) - Depth 0.1 0.3 0.3 -Total Square (Post) (cm) 2.40 1.95 1.80 -Area of Debridement (cm) - Length 1.6 1.3 1.5 -Area of Debridement (cm) - Width 1.5 1.5 1.2 -Total Square (Area) (cm) 2.40 1.95 1.80 -Tunneling No No No -Undermining/Tunneling No No No -Circular Undermining No No No -Wound/Ulcer Outcome Not Healed Not Healed Not Healed -Ulcer Cleansing Rinsed/ Rinsed/ Rinsed/ Irrigated with Irrigated with Irrigated with Saline Saline Saline -Foul Odor after Cleansing No No No -Bioengineered Tissue No No No -Bleeding Controlled with Pressure Pressure Pressure -Treatment Response Procedure Procedure Procedure Tolerated Well Tolerated Well Tolerated Well -Debridement - Subq, 1st 20sq cm Yes Yes Yes Pain Scale: 0-10 Numeric Is Patient Pain Free? Yes Yes Yes 06/21/23 12:02 Wound Center Nurse 2 #1 R Knee -Time 11:22 -Correct Patient Yes -Correct Side, Site, Position Yes -Correct Procedure Yes -Procedure Performed Yes -Type of Procedure Debridement -Clinical Debridement Subcutaneous -Tissue Removed Subcutaneous -Post Debridement (cm) - Length 1.2 -Post Debridement (cm) - Width 1.2 -Post Debridement (cm) - Depth 0.4 -Total Square (Post) (cm) 1.44 -Area of Debridement (cm) - Length 1.2 -Area of Debridement (cm) - Width 1.2 -Total Square (Area) (cm) 1.44 -Tunneling No -Undermining/Tunneling No -Circular Undermining No -Wound/Ulcer Outcome Not Healed -Ulcer Cleansing Rinsed/ Irrigated with Saline -Foul Odor after Cleansing No -Bioengineered Tissue No -Bleeding Controlled with Pressure -Treatment Response Procedure Tolerated Well -Debridement - Subq, 1st 20sq cm Yes Pain Scale: 0-10 Numeric Is Patient Pain Free? Yes WC - Nurse 3 - General Ulcer D/C NN Start: 06/01/23 14:00 Freq: Status: Active Protocol: Activity Type Activity Date Activity User E-sign Co-sign Detail Recorded Client Recorded Date Recorded By Document 06/01/23 14:57 BMF [id number] 06/01/23 14:59 BMF Document 06/07/23 11:33 MW [id number] 06/07/23 11:34 MW Document 06/14/23 11:26 KW [id number] 06/14/23 11:26 KW Document 06/21/23 11:31 MW [id number] 06/21/23 11:33 MW 06/01/23 06/07/23 06/14/23 14:57 11:33 11:26 Wound Care Center Nurse 3 #1 R Knee -Ulcer Cleansing Rinsed/ Rinsed/ Rinsed/ Irrigated with Irrigated with Irrigated with Saline Saline Saline -Foul Odor after Cleansing No No -Negative Pressure Wound Therapy N/A -Primary Dressing Applied Mepilex Border Mepilex Border Mepilex Border -Other Dressing HYDROGEL Santyl -Mepilex Border 4 3 1 Treatment Response Procedure Procedure Tolerated Well Tolerated Well Pain Scale: 0-10 Numeric Is Patient Pain Free? Yes Yes Yes Teaching: Wound Center Dressing Your Wound -Person Taught -Teaching Method -Response to teaching Control Swelling with Leg Elevation -Person Taught Patient -Teaching Method Discussion -Response to teaching Verbalize understanding WC - Visit Discharge Discharge Condition Stable Stable Stable Ambulatory Status Ambulatory, Ambulatory, Ambulatory, Walker Walker Walker Transportation Private Auto Private Auto Accompanied by Medication Reconcilliation completed & No No provided to patient/care provider Clinical Summary of Care Provided Yes Yes Notes: 06/21/23 11:31 Wound Care Center Nurse 3 #1 R Knee -Ulcer Cleansing Rinsed/ Irrigated with Saline -Foul Odor after Cleansing No -Negative Pressure Wound Therapy N/A -Primary Dressing Applied Mepilex Border -Other Dressing hydrogel -Mepilex Border 1 Treatment Response Procedure Tolerated Well Pain Scale: 0-10 Numeric Is Patient Pain Free? Yes Teaching: Wound Center Dressing Your Wound -Person Taught Patient,Family -Teaching Method Discussion -Response to teaching Verbalize understanding Control Swelling with Leg Elevation -Person Taught -Teaching Method -Response to teaching WC - Visit Discharge Discharge Condition Stable Ambulatory Status Ambulatory, Walker Transportation Private Auto Accompanied by Medication Reconcilliation completed & No provided to patient/care provider Clinical Summary of Care Provided Yes Notes: Dressing applied per Pippa Quiñones LPN. Patient tolerated well. Assessment/Plan Assessment/Plan (1) Pressure ulcer: CODE(S): L89.90 - Pressure ulcer of unspecified site, unspecified stage QUALIFIERS: Pressure injury location: knee Pressure injury stage: stage 3 Laterality: right Qualified Code(s): L89.893 - Pressure ulcer of other site, stage 3 (2) History of permanent cardiac pacemaker placement: CODE(S): Z95.0 - Presence of cardiac pacemaker (3) Sick sinus syndrome: CODE(S): I49.5 - Sick sinus syndrome (4) Longstanding persistent atrial fibrillation: CODE(S): I48.11 - Longstanding persistent atrial fibrillation (5) Paroxysmal atrial flutter: CODE(S): I48.92 - Unspecified atrial flutter (6) Essential (primary) hypertension: CODE(S): I10 - Essential (primary) hypertension (7) Tobacco abuse: CODE(S): Z72.0 - Tobacco use (8) Tobacco abuse counseling: CODE(S): Z71.6 - Tobacco abuse counseling (9) Nonrheumatic aortic (valve) insufficiency: CODE(S): I35.1 - Nonrheumatic aortic (valve) insufficiency (10) Nonrheumatic mitral (valve) insufficiency: CODE(S): I34.0 - Nonrheumatic mitral (valve) insufficiency (11) History of bilateral hip replacements: CODE(S): Z96.643 - Presence of artificial hip joint, bilateral (12) History of bilateral knee replacement: CODE(S): Z96.653 - Presence of artificial knee joint, bilateral PLAN: Plan This is an 88-year-old male who presented with a stage III pressure ulceration on the right lateral knee. The ulceration occurred as a result of a knee brace which was worn for 5 weeks, without removal. Upon development of pain on the lateral aspect of the right knee, the brace was removed, revealing the presence of a pressure ulceration. The pressure ulceration continues to improve, now exhibiting an increasing amount of pink, healthy, granulation tissue. There has been improvement in the appearance of the ulceration in recent weeks. Offloading measures are to be continued, and have been discussed with the patient and his . We are to continue the use of collagenase Santyl topically, which will be applied on a daily basis. The patient and his have been instructed in the appropriate means of application. Serial debridements are anticipated. The pressure ulceration appears to be a stage III, and extension into the joint space or bone is not suspected. The patient is to elevate his lower extremities is much as possible, to minimize swelling. He has also been provided a prescription for graduated compression stockings, knee-high length, of 15 to 20 mmHg compression. He has been measured, and is awaiting receipt of his stockings. These are to be worn on a daily basis. The patient is to follow-up on an outpatient basis in 1 week. Total time: 25 minutes
== END 2023-06-27 23:59 | disposition home or self-care (01) ==
LOC: WC 10:45
PROVIDERS: PCP Preventive Medicine Occupational Medicine; Referring Provider Specialist; Visit Provider Surgery
DX: L89.893 Pressure ulcer of other site, stage 3 (principal); I48.92 Unspecified atrial flutter; I49.5 Sick sinus syndrome; I48.11 Longstanding persistent atrial fibrillation; I10 Essential (primary) hypertension; Z96.653 Presence of artificial knee joint, bilateral; Z95.0 Presence of cardiac pacemaker; Z87.891 Personal history of nicotine dependence; Z96.643 Presence of artificial hip joint, bilateral; Z79.01 Long term (current) use of anticoagulants; Z79.899 Other long term (current) drug therapy
CPT/HCPCS: 11042

== ENCOUNTER 2023-07-26 10:30 | Outpatient (RCR) | payer MEDICARE, SELFPAY ==
[2023-06-28 00:21] VITALS: BP 148/48; PULSE 60; RESP 20; TEMP 36.3
[2023-07-05 09:59] VITALS: BP 139/55; PULSE 66; RESP 20; TEMP 35.9
--- NOTE | 2023-07-05 10:34 | HP.PCM_ITS ---
History of Present Illness Date of Service: 07/05/23 Chief Complaint: Stage III pressure ulceration of the right lateral knee History of Wound: This is an 88-year-old male who presented with a pressure ulceration located on the right lateral knee. The patient has been undergoing recent physical therapy for issues related to his right knee. He was placed in a right knee brace, and was instructed to leave it in place, without removing. The brace was in place for approximately 5 weeks, when the patient began to complain of pain on the lateral aspect of his right knee. The brace was removed, and the patient was found to have a pressure ulceration on the lateral aspect of his right knee whic h appears to be a stage III pressure ulcer. The patient has been referred for evaluation and management. The patient is on Xarelto, and has a history of atrial fibrillation. The patient ambulates in limited fashion, requiring a walker. He sleeps flat at night. His history is negative for myocardial infarction, cerebrovascular accident, renal disease, pulmonary disease, thyroid disease, and hyperlipidemia. He has previously undergone bilateral hip replacement surgery, as well as bilateral knee replacement procedures. He has an indwelling pacemaker. [facility] Medical History Basal cell carcinoma (BCC) of face Essential (primary) hypertension Longstanding persistent atrial fibrillation Nonrheumatic aortic (valve) insufficiency Nonrheumatic aortic valve insufficiency Nonrheumatic mitral (valve) insufficiency Nonrheumatic mitral (valve) insufficiency Paroxysmal atrial flutter Pressure ulcer Sick sinus syndrome Tobacco abuse Tobacco abuse counseling Home Medications fluticasone propionate 50 mcg/actuation nasal spray,suspension 1 spray NASAL DAILY PRN Nasal Congestion 08/04/17 [History Last Taken Unknown] sennosides 8.6 mg-docusate sodium 50 mg tablet 2 tab PO BID PRN Constipation 08/04/17 [History Last Taken Unknown] multivitamin 1 cap PO QDAY 12/23/17 [History Last Taken Unknown] alprazolam 1 mg tablet 1 mg PO DAILY PRN aniexty 04/24/20 [History Last Taken Unknown] doxazosin 4 mg tablet 4 mg PO DAILY #90 tabs 01/25/22 [Rx Last Taken Unknown] ramipril 5 mg capsule See Rx Instructions .Route .COMPLEX #90 caps 12/09/22 [Rx Last Taken Unknown] triamterene 75 mg-hydrochlorothiazide 50 mg tablet 1 tab PO DAILY 05/26/23 [History Last Taken Unknown] paroxetine HCl 10 mg tablet (Paxil) 10 mg PO DAILY 06/14/23 [History Last Taken Unknown] Allergy/AdvReac Type Severity Reaction Status Date / Time No Known Allergies Allergy Verified 05/26/23 15:24 Family History Father Cancer Stomach Cancer Surgical History History of bilateral hip replacements History of bilateral knee replacement 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 General Appearance: cooperative, comfortable, well kempt and well developed Orientation / Consciousness: awake, oriented to person, oriented to place and oriented to time HEENT normocephalic, head/scalp atraumatic and hearing grossly normal bilaterally Head and Scalp: normal to inspection, normocephalic and atraumatic External Ear: external ears normal Eyes PERRL and EOMs intact bilaterally General Eye: normal appearance of both eyes Neck full ROM Resp normal respiratory effort, normal air movement, no retractions and no use of accessory muscles Effort and Inspection: able to speak in complete sentences and symmetric chest movement Extremity no calf tenderness General Extremity: Negative for clubbing or cyanosis Skin Wound Narrative: A pressure ulcer is noted on the right lateral knee. There is a small amount of nonviable tissue and bioburden, though decreasing in amount in recent weeks. Dimensions are documented elsewhere. The ulceration is decreasing in size. There are now increasing areas of pink, healthy, granulation tissue. There is no drainage. There is no odor. There is no sign of infection or cellulitis. Mild swelling is noted in the distal right lower extremity. Neuro oriented x3, CN's II-XII intact bilaterally, moves all extremities and no focal motor deficits Sensorium / Orientation: awake, alert, oriented to person, oriented to place and oriented to time Psych Appearance: grossly normal and appropriate Attitude: calm Activity / Motor Behavior: appropriate eye contact Speech: normal speech Mood & Affect: euthymic mood Thought Process: normal thought process Thought Content: normal thought content Attention / Concentration: attention grossly intact Debridement Note Debridement Note Wound debrided: Stage III pressure ulceration, right lateral knee Laterality: Right Type of Debridement: Excisional debridement Anesthesia Used: 5% Lidocaine Gel Depth: Down to and including healthy tissue and in the subcutaneous layer Percentage of wound debrided: 100 Instrument Used: 5mm curette Severity: Fat Layer Exposed Amount of bleeding with debridement: Mild Bleeding Controlled with: Compression and gauze Patient tolerated procedure: Patient tolerated procedure well Debridement Free Text: Post-Debridement Measurements and Additional Note: Post-Debridement Measurements/Treatment - Nurse 1 - General Ulcer Assessment Start: 07/05/23 09:55 Freq: Status: Active Protocol: MEG.SHIRIN Activity Type Activity Date Activity User E-sign Co-sign Detail Recorded Client Recorded Date Recorded By Document 07/05/23 09:59 DL [id number] 07/05/23 10:08 DL 07/05/23 09:59 - Today's Visit Information Type of service Follow-up Visit (Physician/MECHANICAL HANDYMAN ) Arrival Mode Ambulatory, Walker Transfer Assistance None Patient Identification Verified (Name & Yes ) Patient Requires Transmission-Based No Precautions Vital Signs Temperature (97.8 F-99.1 F) 96.6 F L Temperature Source Temporal Pulse Rate (60-100) 66 Pulse Location Monitor Respiratory Rate (12-18) 20 H Respiratory rate source Observation Blood Pressure (90/60-120/80) 139/55 H Blood Pressure Mean 83 Source Monitor History Since Last Visit- (Skip if this is Patient's initial visit) Have you changed medications since your No last visit? Any new allergies or adverse reactions No Had a fall/change in ADL's that may No increase risk of falls Signs or symptoms of abuse and/or No neglect since last visit Have you been in the hospital since your No last visit? Has dressing in place as prescribed Yes Has compression in place as prescribed N/A Has offloadiing in place as prescribed N/A Experienced any changes in pain level or No management Pain Scale: 0-10 Numeric Is Patient Pain Free? Yes WC - Nurse 1 - General Ulcer Measurement Start: 07/05/23 09:55 Freq: Status: Active Protocol: Activity Type Activity Date Activity User E-sign Co-sign Detail Recorded Client Recorded Date Recorded By Document 07/05/23 09:59 DL [id number] 07/05/23 10:08 DL 07/05/23 09:59 Wound Center Nurse 1 #1 R Knee -Current Size (cm) - Length 1.3 -Current Size (cm) - Width 1 -Current Size (cm) - Depth 0.1 -Total Square Cm 1.3 -Photo Taken Yes -Exudate Amt Small -Exudate Type Serosanguineous -Wound Margin Distinct, Outline Attached -Granulation Amt Small (1-33%) -Granulation Quality [place] -Necrosis Amt Large (67-100%) -Necrotic Tissue Type Adherent Slough -Structure Exposed N/A -Texture (Gricel-wound Skin Appearance) Scarring -Moisture (Gricel-wound Skin Appearance) No Abnormality -Color (Gricel-wound Skin Appearance) Hemosiderin Staining -Tenderness on Palpation (Gricel-wound No Skin Appearance) -Ulcer Cleansing Soap and Water -Foul Odor after Cleansing No -Anesthetic Used 5% Lidocaine Gel Assessment/Plan Assessment/Plan (1) Pressure ulcer: CODE(S): L89.90 - Pressure ulcer of unspecified site, unspecified stage QUALIFIERS: Pressure injury location: knee Pressure injury stage: stage 3 Laterality: right Qualified Code(s): L89.893 - Pressure ulcer of other site, stage 3 (2) History of permanent cardiac pacemaker placement: CODE(S): Z95.0 - Presence of cardiac pacemaker (3) Sick sinus syndrome: CODE(S): I49.5 - Sick sinus syndrome (4) Longstanding persistent atrial fibrillation: CODE(S): I48.11 - Longstanding persistent atrial fibrillation (5) Paroxysmal atrial flutter: CODE(S): I48.92 - Unspecified atrial flutter (6) Essential (primary) hypertension: CODE(S): I10 - Essential (primary) hypertension (7) Tobacco abuse: CODE(S): Z72.0 - Tobacco use (8) Tobacco abuse counseling: CODE(S): Z71.6 - Tobacco abuse counseling (9) Nonrheumatic aortic (valve) insufficiency: CODE(S): I35.1 - Nonrheumatic aortic (valve) insufficiency (10) Nonrheumatic mitral (valve) insufficiency: CODE(S): I34.0 - Nonrheumatic mitral (valve) insufficiency (11) History of bilateral hip replacements: CODE(S): Z96.643 - Presence of artificial hip joint, bilateral (12) History of bilateral knee replacement: CODE(S): Z96.653 - Presence of artificial knee joint, bilateral PLAN: Plan This is an 88-year-old male who presented with a stage III pressure ulceration on the right lateral knee. The ulceration occurred as a result of a knee brace which was worn for 5 weeks, without removal. Upon development of pain on the lateral aspect of the right knee, the brace was removed, revealing the presence of a pressure ulceration. The pressure ulceration continues to improve, now exhibiting an increasing amount of pink, healthy, granulation tissue. There has been improvement in the appearance of the ulceration in recent weeks. Offloading measures are to be continued, and have been discussed with the patient and his . We are to implement the use of Promogran, which will be applied topically on a daily basis. The patient and his have been instructed in the appropriate means of application. Serial debridements are anticipated. The pressure ulceration appears to be a stage III, and extension into the joint space or bone is not suspected. The patient is to elevate his lower extremities is much as possible, to minimize swelling. He has also been provided a prescription for graduated compression stockings, knee-high length, of 15 to 20 mmHg compression. He has been measured, and is awaiting receipt of his stockings. These are to be worn on a daily basis. The patient may be suitable for a skin graft substitute in the coming weeks, if continuing improvement is noted in the status of his ulceration. The patient is to follow- up on an outpatient basis in 1 week. Total time: 26 minutes
[2023-07-12 10:09] VITALS: BP 158/56; PULSE 61; RESP 20; TEMP 36.2
--- NOTE | 2023-07-12 10:59 | PCM.WC.HP ---
History of Present Illness Date of Service: 07/12/23 Chief Complaint: Stage III pressure ulceration of the right lateral knee History of Wound: This is an 88-year-old male who presented with a pressure ulceration located on the right lateral knee. The patient has been undergoing recent physical therapy for issues related to his right knee. He was placed in a right knee brace, and was instructed to leave it in place, without removing. The brace was in place for approximately 5 weeks, when the patient began to complain of pain on the lateral aspect of his right knee. The brace was removed, and the patient was found to have a pressure ulceration on the lateral aspect of his right knee which appears to be a stage III pressure ulcer. The patient has been referred for evaluation and management. The patient is on Xarelto, and has a history of atrial fibrillation. The patient ambulates in limited fashion, requiring a walker. He sleeps flat at night. His history is negative for myocardial infarction, cerebrovascular accident, renal disease, pulmonary disease, thyroid disease, and hyperlipidemia. He has previously undergone bilateral hip replacement surgery, as well as bilateral knee replacement procedures. He has an indwelling pacemaker. [facility] Medical History Basal cell carcinoma (BCC) of face Essential (primary) hypertension Longstanding persistent atrial fibrillation Nonrheumatic aortic (valve) insufficiency Nonrheumatic aortic valve insufficiency Nonrheumatic mitral (valve) insufficiency Nonrheumatic mitral (valve) insufficiency Paroxysmal atrial flutter Pressure ulcer Sick sinus syndrome Tobacco abuse Tobacco abuse counseling Home Medications fluticasone propionate 50 mcg/actuation nasal spray,suspension 1 spray NASAL DAILY PRN Nasal Congestion 08/04/17 [History Last Taken Unknown] sennosides 8.6 mg-docusate sodium 50 mg tablet 2 tab PO BID PRN Constipation 08/04/17 [History Last Taken Unknown] multivitamin 1 cap PO QDAY 12/23/17 [History Last Taken Unknown] alprazolam 1 mg tablet 1 mg PO DAILY PRN aniexty 04/24/20 [History Last Taken Unknown] doxazosin 4 mg tablet 4 mg PO DAILY #90 tabs 01/25/22 [Rx Last Taken Unknown] ramipril 5 mg capsule See Rx Instructions .Route .COMPLEX #90 caps 12/09/22 [Rx Last Taken Unknown] triamterene 75 mg-hydrochlorothiazide 50 mg tablet 1 tab PO DAILY 05/26/23 [History Last Taken Unknown] paroxetine HCl 10 mg tablet (Paxil) 10 mg PO DAILY 06/14/23 [History Last Taken Unknown] Allergy/AdvReac Type Severity Reaction Status Date / Time No Known Allergies Allergy Verified 05/26/23 15:24 Family History Father Cancer Stomach Cancer Surgical History History of bilateral hip replacements History of bilateral knee replacement 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) Pacemaker Social History Smoking Status: Former smoker alcohol intake: never substance use type: does not use what type of physical activity do you participate in: none Vital Signs Vital Signs Vital Signs: 07/12/23 10:09 Temperature 97.2 F L Temperature Source Temporal Pulse Rate 61 Respiratory Rate 20 H Blood Pressure 158/56 H Blood Pressure Mean 90 Physical Exam Const alert, oriented x3, no apparent distress and well nourished Constitutional Narrative: The patient is of normal body habitus, with a BMI of approximately 24.7. General Appearance: cooperative, comfortable, well kempt and well developed Orientation / Consciousness: awake, oriented to person, oriented to place and oriented to time HEENT normocephalic, head/scalp atraumatic and hearing grossly normal bilaterally Head and Scalp: normal to inspection, normocephalic and atraumatic External Ear: external ears normal Eyes PERRL and EOMs intact bilaterally General Eye: normal appearance of both eyes Neck full ROM Resp normal respiratory effort, normal air movement, no retractions and no use of accessory muscles Effort and Inspection: able to speak in complete sentences and symmetric chest movement Extremity no calf tenderness General Extremity: Negative for clubbing or cyanosis Skin Wound Narrative: A pressure ulcer is noted on the right lateral knee. There is a small amount of nonviable tissue and bioburden, though decreasing in amount in recent weeks. Dimensions are documented elsewhere. The ulceration is decreasing in size and becoming more superficial. There is no drainage. There is no odor. There is no sign of infection or cellulitis. Mild swelling is noted in the distal right lower extremity. Neuro oriented x3, CN's II-XII intact bilaterally, moves all extremities and no focal motor deficits Sensorium / Orientation: awake, alert, oriented to person, oriented to place and oriented to time Psych Appearance: grossly normal and appropriate Attitude: calm Activity / Motor Behavior: appropriate eye contact Speech: normal speech Mood & Affect: euthymic mood Thought Process: normal thought process Thought Content: normal thought content Attention / Concentration: attention grossly intact Debridement Note Debridement Note Wound debrided: Stage III pressure ulceration, right lateral knee Laterality: Right Type of Debridement: Excisional debridement Anesthesia Used: 5% Lidocaine Gel Depth: Down to and including healthy tissue and in the subcutaneous layer Percentage of wound debrided: 100 Instrument Used: 5mm curette Severity: Fat Layer Exposed Amount of bleeding with debridement: Mild Bleeding Controlled with: Compression and gauze Patient tolerated procedure: Patient tolerated procedure well Debridement Free Text: Post-Debridement Measurements and Additional Note: Post-Debridement Measurements/Treatment - Nurse 1 - General Ulcer Assessment Start: 07/05/23 09:55 Freq: Status: Active Protocol: ALICIA Activity Type Activity Date Activity User E-sign Co-sign Detail Recorded Client Recorded Date Recorded By Document 07/05/23 09:59 DL [id number] 07/05/23 10:08 DL Document 07/12/23 10:09 DL [id number] 07/12/23 10:17 DL Edit Result 07/12/23 10:09 DL (1) [id number] 07/12/23 10:24 DL (1) Temperature (97.8 F-99.1 F) => 97.2 F L Pulse Rate (60-100) => 61 Pulse Location => Monitor Respiratory Rate (12-18) => 20 H Respiratory rate source => Observation Blood Pressure (90/60-120/80) => 158/56 H Blood Pressure Mean => 90 07/05/23 07/12/23 09:59 10:09 - Today's Visit Information Type of service Follow-up Visit Follow-up Visit (Physician/MANAGER OF ORGANIZATIONAL DEVELOPMENT (Physician/MANAGER OF ORGANIZATIONAL DEVELOPMENT ) ) Arrival Mode Ambulatory, Ambulatory, Walker Walker Transfer Assistance None None Patient Identification Verified (Name & Yes Yes ) Patient Requires Transmission-Based No No Precautions Vital Signs Temperature (97.8 F-99.1 F) 96.6 F L 97.2 F L Temperature Source Temporal Temporal Pulse Rate (60-100) 66 61 Pulse Location Monitor Monitor Respiratory Rate (12-18) 20 H 20 H Respiratory rate source Observation Observation Blood Pressure (90/60-120/80) 139/55 H 158/56 H Blood Pressure Mean 83 90 Source Monitor History Since Last Visit- (Skip if this is Patient's initial visit) Have you changed medications since your No No last visit? Any new allergies or adverse reactions No No Had a fall/change in ADL's that may No No increase risk of falls Signs or symptoms of abuse and/or No No neglect since last visit Have you been in the hospital since your No No last visit? Has dressing in place as prescribed Yes Yes Has compression in place as prescribed N/A Yes Has offloadiing in place as prescribed N/A N/A Experienced any changes in pain level or No No management Pain Scale: 0-10 Numeric Is Patient Pain Free? Yes Yes WC - Nurse 1 - General Ulcer Measurement Start: 07/05/23 09:55 Freq: Status: Active Protocol: Activity Type Activity Date Activity User E-sign Co-sign Detail Recorded Client Recorded Date Recorded By Document 07/05/23 09:59 DL [id number] 07/05/23 10:08 DL Document 07/12/23 10:09 DL [id number] 07/12/23 10:17 DL Edit Result 07/12/23 10:09 DL (1) [id number] 07/12/23 10:24 DL (1) #1 R Knee - Current Size (cm) - Length => 0.9 - Current Size (cm) - Width => 0.8 - Current Size (cm) - Depth => 0.1 - Total Square Cm => 0.72 Right Calf (cm) => 30 Right Ankle (cm) => 25 07/05/23 07/12/23 09:59 10:09 Wound Center Nurse 1 #1 R Knee -Current Size (cm) - Length 1.3 0.9 -Current Size (cm) - Width 1 0.8 -Current Size (cm) - Depth 0.1 0.1 -Total Square Cm 1.3 0.72 -Photo Taken Yes Yes -Exudate Amt Small Small -Exudate Type Serosanguineous Serosanguineous -Wound Margin Distinct, Distinct, Outline Outline Attached Attached -Granulation Amt Small (1-33%) None Present (0 %) -Granulation Quality [place] -Necrosis Amt Large (67-100%) Small (1-33%) -Necrotic Tissue Type Adherent Slough Adherent Slough -Structure Exposed N/A N/A -Texture (Gricel-wound Skin Appearance) Scarring Scarring -Moisture (Gricel-wound Skin Appearance) No Abnormality No Abnormality -Color (Gricel-wound Skin Appearance) Hemosiderin No Abnormality Staining -Temperature (Gricel-wound Skin No Abnormality Appearance) (Pt Warm) -Tenderness on Palpation (Gricel-wound No No Skin Appearance) -Ulcer Cleansing Soap and Water Soap and Water -Foul Odor after Cleansing No No -Anesthetic Used 5% Lidocaine 5% Lidocaine Gel Gel Right Calf (cm) 30 Right Ankle (cm) 25 WC - Nurse 2 - General Ulcer CM Notes Start: 07/05/23 09:55 Freq: Status: Active Protocol: Activity Type Activity Date Activity User E-sign Co-sign Detail Recorded Client Recorded Date Recorded By Document 07/05/23 12:15 PL [id number] 07/05/23 12:15 PL 07/05/23 12:15 Wound Center Nurse 2 #1 R Knee -Time 10:18 -Correct Patient Yes -Correct Side, Site, Position Yes -Correct Procedure Yes -Procedure Performed Yes -Type of Procedure Debridement -Clinical Debridement Subcutaneous -Tissue Removed Subcutaneous -Post Debridement (cm) - Length 1.3 -Post Debridement (cm) - Width 1.0 -Post Debridement (cm) - Depth 0.1 -Total Square (Post) (cm) 1.30 -Area of Debridement (cm) - Length 1.3 -Area of Debridement (cm) - Width 1.0 -Total Square (Area) (cm) 1.30 -Tunneling No -Undermining/Tunneling No -Circular Undermining No -Wound/Ulcer Outcome Not Healed -Ulcer Cleansing Rinsed/ Irrigated with Saline -Foul Odor after Cleansing No -Bioengineered Tissue No -Bleeding Controlled with Pressure -Treatment Response Procedure Tolerated Well -Debridement - Subq, 1st 20sq cm Yes Pain Scale: 0-10 Numeric Is Patient Pain Free? Yes Assessment/Plan Assessment/Plan (1) Pressure ulcer: CODE(S): L89.90 - Pressure ulcer of unspecified site, unspecified stage QUALIFIERS: Pressure injury location: knee Pressure injury stage: stage 3 Laterality: right Qualified Code(s): L89.893 - Pressure ulcer of other site, stage 3 (2) History of permanent cardiac pacemaker placement: CODE(S): Z95.0 - Presence of cardiac pacemaker (3) Sick sinus syndrome: CODE(S): I49.5 - Sick sinus syndrome (4) Longstanding persistent atrial fibrillation: CODE(S): I48.11 - Longstanding persistent atrial fibrillation (5) Paroxysmal atrial flutter: CODE(S): I48.92 - Unspecified atrial flutter (6) Essential (primary) hypertension: CODE(S): I10 - Essential (primary) hypertension (7) Tobacco abuse: CODE(S): Z72.0 - Tobacco use (8) Tobacco abuse counseling: CODE(S): Z71.6 - Tobacco abuse counseling (9) Nonrheumatic aortic (valve) insufficiency: CODE(S): I35.1 - Nonrheumatic aortic (valve) insufficiency (10) Nonrheumatic mitral (valve) insufficiency: CODE(S): I34.0 - Nonrheumatic mitral (valve) insufficiency (11) History of bilateral hip replacements: CODE(S): Z96.643 - Presence of artificial hip joint, bilateral (12) History of bilateral knee replacement: CODE(S): Z96.653 - Presence of artificial knee joint, bilateral PLAN: Plan This is an 88-year-old male who presented with a stage III pressure ulceration on the right lateral knee. The ulceration occurred as a result of a knee brace which was worn for 5 weeks, without removal. Upon development of pain on the lateral aspect of the right knee, the brace was removed, revealing the presence of a pressure ulceration. The pressure ulceration continues to improve, now exhibiting an increasing amount of pink, healthy, granulation tissue. There has been improvement in the appearance of the ulceration in recent weeks. Offloading measures are to be continued, and have been discussed with the patient and his . We are to continue the use of Promogran, which will be applied topically on a daily basis. The patient and his have been instructed in the appropriate means of application. Serial debridements are anticipated. The pressure ulceration appears to be a stage III, and extension into the joint space or bone is not suspected. The patient is to elevate his lower extremities is much as possible, to minimize swelling. He has also been provided a prescription for graduated compression stockings, knee-high length, of 15 to 20 mmHg compression. He has received the stockings, and is wearing them daily. The patient is a candidate for a skin graft substitute in the coming weeks. Preauthorization will be sought. The patient is to follow-up on an outpatient basis in 1 week. Total time: 25 minutes
[2023-07-26 10:01] VITALS: BP 173/48; PULSE 77; RESP 16; TEMP 36
--- NOTE | 2023-07-26 14:00 | HP.PCM_ITS ---
History of Present Illness Date of Service: 07/26/23 Chief Complaint: Stage III pressure ulceration of the right lateral knee History of Wound: This is an 88-year-old male who presented with a pressure ulceration located on the right lateral knee. The patient has been undergoing recent physical therapy for issues related to his right knee. He was placed in a right knee brace, and was instructed to leave it in place, without removing. The brace was in place for approximately 5 weeks, when the patient began to complain of pain on the lateral aspect of his right knee. The brace was removed, and the patient was found to have a pressure ulceration on the lateral aspect of his right knee whic h appears to be a stage III pressure ulcer. The patient has been referred for evaluation and management. The patient is on Xarelto, and has a history of atrial fibrillation. The patient ambulates in limited fashion, requiring a walker. He sleeps flat at night. His history is negative for myocardial infarction, cerebrovascular accident, renal disease, pulmonary disease, thyroid disease, and hyperlipidemia. He has previously undergone bilateral hip replacement surgery, as well as bilateral knee replacement procedures. He has an indwelling pacemaker. [facility] Medical History Basal cell carcinoma (BCC) of face Essential (primary) hypertension Longstanding persistent atrial fibrillation Nonrheumatic aortic (valve) insufficiency Nonrheumatic aortic valve insufficiency Nonrheumatic mitral (valve) insufficiency Nonrheumatic mitral (valve) insufficiency Paroxysmal atrial flutter Pressure ulcer Sick sinus syndrome Tobacco abuse Tobacco abuse counseling Home Medications fluticasone propionate 50 mcg/actuation nasal spray,suspension 1 spray NASAL DAILY PRN Nasal Congestion 08/04/17 [History Last Taken Unknown] sennosides 8.6 mg-docusate sodium 50 mg tablet 2 tab PO BID PRN Constipation 08/04/17 [History Last Taken Unknown] multivitamin 1 cap PO QDAY 12/23/17 [History Last Taken Unknown] alprazolam 1 mg tablet 1 mg PO DAILY PRN aniexty 04/24/20 [History Last Taken Unknown] doxazosin 4 mg tablet 4 mg PO DAILY #90 tabs 01/25/22 [Rx Last Taken Unknown] ramipril 5 mg capsule See Rx Instructions .Route .COMPLEX #90 caps 12/09/22 [Rx Last Taken Unknown] triamterene 75 mg-hydrochlorothiazide 50 mg tablet 1 tab PO DAILY 05/26/23 [History Last Taken Unknown] paroxetine HCl 10 mg tablet (Paxil) 10 mg PO DAILY 06/14/23 [History Last Taken Unknown] Allergy/AdvReac Type Severity Reaction Status Date / Time No Known Allergies Allergy Verified 05/26/23 15:24 Family History Father Cancer Stomach Cancer Surgical History History of bilateral hip replacements History of bilateral knee replacement 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) Pacemaker Social History Smoking Status: Former smoker alcohol intake: never substance use type: does not use what type of physical activity do you participate in: none Vital Signs Vital Signs Vital Signs: 07/26/23 10:01 Temperature 96.8 F L Temperature Source Temporal Pulse Rate 77 Respiratory Rate 16 Blood Pressure 173/48 H Blood Pressure Mean 89 Blood Pressure Source Monitor Blood Pressure Position Semi-Fowlers Blood Pressure Location Left Arm Physical Exam Const alert, oriented x3, no apparent distress, average body habitus and well nourished Constitutional Narrative: The patient is of normal body habitus, with a BMI of approximately 24.7. General Appearance: cooperative, comfortable, well kempt and well developed Orientation / Consciousness: awake, oriented to person, oriented to place and oriented to time HEENT normocephalic, head/scalp atraumatic and hearing grossly normal bilaterally Head and Scalp: normal to inspection, normocephalic and atraumatic External Ear: external ears normal Eyes PERRL and EOMs intact bilaterally General Eye: normal appearance of both eyes Neck full ROM Resp normal respiratory effort, normal air movement, no retractions and no use of accessory muscles Effort and Inspection: able to speak in complete sentences and symmetric chest movement Extremity no calf tenderness General Extremity: Negative for clubbing or cyanosis Skin Wound Narrative: A pressure ulcer is noted on the right lateral knee. There is a small amount of nonviable tissue and bioburden, though decreasing in amount in recent weeks. Dimensions are documented elsewhere. The ulceration is decreasing in size and becoming more superficial. There is no drainage. There is no odor. There is no sign of infection or cellulitis. Swelling appears to be well controlled. The patient now has some erythema and minor skin irritation in the sacral area and buttocks. There is a very small, superficial ulceration on the left buttock. Dimensions are documented elsewhere. There is no sign of infection or cellulitis. Neuro oriented x3, CN's II-XII intact bilaterally, moves all extremities and no focal motor deficits Sensorium / Orientation: awake, alert, oriented to person, oriented to place and oriented to time Psych Appearance: grossly normal and appropriate Attitude: calm Activity / Motor Behavior: appropriate eye contact Speech: normal speech Mood & Affect: euthymic mood Thought Process: normal thought process Thought Content: normal thought content Attention / Concentration: attention grossly intact Debridement Note Debridement Note Wound debrided: Stage III pressure ulceration, right lateral knee Laterality: Right Type of Debridement: Excisional debridement Anesthesia Used: 5% Lidocaine Gel Depth: Down to and including healthy tissue and in the subcutaneous layer Percentage of wound debrided: 100 Instrument Used: 5mm curette Severity: Fat Layer Exposed Amount of bleeding with debridement: Mild Bleeding Controlled with: Compression and gauze Patient tolerated procedure: Patient tolerated procedure well Debridement Free Text: Post-Debridement Measurements and Additional Note: Post-Debridement Measurements/Treatment WC - Nurse 1 - General Ulcer Assessment Start: 07/05/23 09:55 Freq: Status: Active Protocol: ALICIA Activity Type Activity Date Activity User E-sign Co-sign Detail Recorded Client Recorded Date Recorded By Document 07/05/23 09:59 DL [id number] 07/05/23 10:08 DL Document 07/12/23 10:09 DL [id number] 07/12/23 10:17 DL Edit Result 07/12/23 10:09 DL (1) [id number] 07/12/23 10:24 DL Document 07/26/23 10:01 JF [id number] 07/26/23 10:10 JF (1) Temperature (97.8 F-99.1 F) => 97.2 F L Pulse Rate (60-100) => 61 Pulse Location => Monitor Respiratory Rate (12-18) => 20 H Respiratory rate source => Observation Blood Pressure (90/60-120/80) => 158/56 H Blood Pressure Mean => 90 07/05/23 07/12/23 07/26/23 09:59 10:09 10:01 - Today's Visit Information Type of service Follow-up Visit Follow-up Visit Follow-up Visit (Physician/HARDENER HELPER (Physician/HARDENER HELPER (Physician/HARDENER HELPER ) ) ) Arrival Mode Ambulatory, Ambulatory, Ambulatory,Cane Walker Walker Transfer Assistance None None Patient Identification Verified (Name & Yes Yes Yes ) Patient Requires Transmission-Based No No No Precautions Vital Signs Temperature (97.8 F-99.1 F) 96.6 F L 97.2 F L 96.8 F L Temperature Source Temporal Temporal Temporal Pulse Rate (60-100) 66 61 77 Pulse Location Monitor Monitor Monitor Respiratory Rate (12-18) 20 H 20 H 16 Respiratory rate source Observation Observation Observation Blood Pressure (90/60-120/80) 139/55 H 158/56 H 173/48 H Blood Pressure Mean 83 90 89 Source Monitor Monitor Position Semi-Fowlers Blood Pressure Location Left Arm History Since Last Visit- (Skip if this is Patient's initial visit) Have you changed medications since your No No No last visit? Any new allergies or adverse reactions No No No Had a fall/change in ADL's that may No No No increase risk of falls Signs or symptoms of abuse and/or No No neglect since last visit Have you been in the hospital since your No No No last visit? Has dressing in place as prescribed Yes Yes Yes Has compression in place as prescribed N/A Yes N/A Has offloadiing in place as prescribed N/A N/A N/A Experienced any changes in pain level or No No No management Left Footwear Regular Shoe Right Footwear Regular Shoe Pain Scale: 0-10 Numeric Is Patient Pain Free? Yes Yes Yes - Nurse 1 - General Ulcer Measurement Start: 07/05/23 09:55 Freq: Status: Active Protocol: Activity Type Activity Date Activity User E-sign Co-sign Detail Recorded Client Recorded Date Recorded By Document 07/05/23 09:59 DL [id number] 07/05/23 10:08 DL Document 07/12/23 10:09 DL [id number] 07/12/23 10:17 DL Edit Result 07/12/23 10:09 DL (1) [id number] 07/12/23 10:24 DL Document 07/26/23 10:01 JF [id number] 07/26/23 10:10 (1) #1 R Knee - Current Size (cm) - Length => 0.9 - Current Size (cm) - Width => 0.8 - Current Size (cm) - Depth => 0.1 - Total Square Cm => 0.72 Right Calf (cm) => 30 Right Ankle (cm) => 25 07/05/23 07/12/23 07/26/23 09:59 10:09 10:01 Wound Center Nurse 1 2-left buttuck -Combined with other wound No -Current Size (cm) - Length 1.5 -Current Size (cm) - Width 0.6 -Current Size (cm) - Depth 0.1 -Total Square Cm 0.90 -Photo Taken Yes -Epithelialization Small 1-33% -Tunneling No -Undermining/Tunneling No -Circular Undermining No -Classification - Thickness Full Thickness without Exposed Support Structure -Exudate Amt Small -Exudate Type Serosanguineous -Wound Margin Flat & Intact -Granulation Amt Medium (34-66%) -Granulation Quality Red -Slough/Fibrin Yes -Necrosis Amt Medium (34-66%) -Necrotic Tissue Type Adherent Slough -Structure Exposed N/A -Texture (Gricel-wound Skin Appearance) Assessed, Friable -Moisture (Gricel-wound Skin Appearance) Assessed,Dry/ Scaly -Color (Gricel-wound Skin Appearance) Assessed -Temperature (Gricel-wound Skin No Abnormality Appearance) (Pt Warm) -Tenderness on Palpation (Gricel-wound No Skin Appearance) -Ulcer Cleansing Wound Cleanser -Foul Odor after Cleansing No -Anesthetic Used 5% Lidocaine Gel #1 R Knee -Combined with other wound No -Current Size (cm) - Length 1.3 0.9 0.8 -Current Size (cm) - Width 1 0.8 0.5 -Current Size (cm) - Depth 0.1 0.1 0.1 -Total Square Cm 1.3 0.72 0.40 -Photo Taken Yes Yes Yes -Epithelialization Medium 34-66% -Tunneling No -Undermining/Tunneling No -Circular Undermining No -Exudate Amt Small Small Small -Exudate Type Serosanguineous Serosanguineous Serosanguineous -Wound Margin Distinct, Distinct, Outline Outline Attached Attached -Granulation Amt Small (1-33%) None Present (0 None Present (0 %) %) -Granulation Quality [place] -Slough/Fibrin Yes -Necrosis Amt Large (67-100%) Small (1-33%) Large (67-100%) -Necrotic Tissue Type Adherent Slough Adherent Slough Adherent Slough -Structure Exposed N/A N/A N/A -Texture (Gricel-wound Skin Appearance) Scarring Scarring Assessed, Localized Edema -Moisture (Gricel-wound Skin Appearance) No Abnormality No Abnormality Assessed -Color (Gricel-wound Skin Appearance) Hemosiderin No Abnormality Assessed Staining -Temperature (Gricel-wound Skin No Abnormality No Abnormality Appearance) (Pt Warm) (Pt Warm) -Tenderness on Palpation (Gricel-wound No No No Skin Appearance) -Ulcer Cleansing Soap and Water Soap and Water Rinsed/ Irrigated with Saline -Foul Odor after Cleansing No No No -Anesthetic Used 5% Lidocaine 5% Lidocaine Gel Gel Lower Limb Edema Present NA Right Calf (cm) 30 Right Ankle (cm) 25 WC - Nurse 2 - General Ulcer CM Notes Start: 07/05/23 09:55 Freq: Status: Active Protocol: Activity Type Activity Date Activity User E-sign Co-sign Detail Recorded Client Recorded Date Recorded By Document 07/05/23 12:15 PL [id number] 07/05/23 12:15 PL Document 07/12/23 12:23 PL [id number] 07/12/23 12:24 PL Document 07/26/23 12:46 PL [id number] 07/26/23 12:47 PL 07/05/23 07/12/23 07/26/23 12:15 12:23 12:46 Wound Center Nurse 2 2-left buttuck -Time 10:28 -Correct Patient Yes -Correct Side, Site, Position Yes -Correct Procedure Yes -Procedure Performed Yes -Type of Procedure Debridement -Clinical Debridement Subcutaneous -Tissue Removed Subcutaneous -Post Debridement (cm) - Length 0.8 -Post Debridement (cm) - Width 0.5 -Post Debridement (cm) - Depth 0.1 -Total Square (Post) (cm) 0.40 -Area of Debridement (cm) - Length 0.8 -Area of Debridement (cm) - Width 0.5 -Total Square (Area) (cm) 0.40 -Tunneling No -Undermining/Tunneling No -Circular Undermining No -Wound/Ulcer Outcome Not Healed -Ulcer Cleansing Rinsed/ Irrigated with Saline -Foul Odor after Cleansing No -Bioengineered Tissue No -Bleeding Controlled with Pressure -Treatment Response Procedure Tolerated Well -Debridement - Subq, 1st 20sq cm No #1 R Knee -Time 10:18 10:15 10:28 -Correct Patient Yes Yes Yes -Correct Side, Site, Position Yes Yes Yes -Correct Procedure Yes Yes Yes -Procedure Performed Yes Yes Yes -Type of Procedure Debridement Debridement Debridement -Clinical Debridement Subcutaneous Subcutaneous Subcutaneous -Tissue Removed Subcutaneous Subcutaneous Subcutaneous -Post Debridement (cm) - Length 1.3 0.9 0.8 -Post Debridement (cm) - Width 1.0 0.8 0.5 -Post Debridement (cm) - Depth 0.1 0.1 0.1 -Total Square (Post) (cm) 1.30 0.72 0.40 -Area of Debridement (cm) - Length 1.3 0.9 0.8 -Area of Debridement (cm) - Width 1.0 0.8 0.5 -Total Square (Area) (cm) 1.30 0.72 0.40 -Tunneling No No No -Undermining/Tunneling No No No -Circular Undermining No No No -Wound/Ulcer Outcome Not Healed Not Healed Not Healed -Ulcer Cleansing Rinsed/ Rinsed/ Rinsed/ Irrigated with Irrigated with Irrigated with Saline Saline Saline -Foul Odor after Cleansing No No No -Bioengineered Tissue No No No -Bleeding Controlled with Pressure Pressure Pressure -Treatment Response Procedure Procedure Procedure Tolerated Well Tolerated Well Tolerated Well -Debridement - Subq, 1st 20sq cm Yes Yes Yes Pain Scale: 0-10 Numeric Is Patient Pain Free? Yes Yes Yes - Nurse 3 - General Ulcer D/C NN Start: 07/05/23 09:55 Freq: Status: Active Protocol: Activity Type Activity Date Activity User E-sign Co-sign Detail Recorded Client Recorded Date Recorded By Document 07/12/23 11:11 MW [id number] 07/12/23 11:17 MW Document 07/26/23 13:28 DL [id number] 07/26/23 13:30 DL 07/12/23 07/26/23 11:11 13:28 Wound Care Center Nurse 3 2-left buttuck -Ulcer Cleansing Rinsed/ Irrigated with Saline -Foul Odor after Cleansing No -Primary Dressing Applied C Hydrogel ($), Mepilex Border -Mepilex Border 1 #1 R Knee -Ulcer Cleansing Rinsed/ Rinsed/ Irrigated with Irrigated with Saline Saline -Foul Odor after Cleansing No No -Negative Pressure Wound Therapy N/A -Primary Dressing Applied Mepilex Border, Promogran -Other Dressing hydrogel -Primary Dressing Covered/Secured with Dry Gauze, Secured with Tape -Mepilex Border 1 -Promogran 1 Treatment Response Procedure Procedure Tolerated Well Tolerated Well Pain Scale: 0-10 Numeric Is Patient Pain Free? Yes Yes Teaching: Wound Center Dressing Your Wound -Person Taught Patient,Family -Teaching Method Discussion, Demonstration -Response to teaching Verbalize understanding WC - Visit Discharge Discharge Condition Stable Stable Ambulatory Status Ambulatory, Ambulatory, Walker Walker Transportation Private Auto Private Auto Accompanied by Medication Reconcilliation completed & No provided to patient/care provider Clinical Summary of Care Provided Yes Assessment/Plan Assessment/Plan (1) Pressure ulcer: CODE(S): L89.90 - Pressure ulcer of unspecified site, unspecified stage QUALIFIERS: Pressure injury location: knee Pressure injury stage: stage 3 Laterality: right Qualified Code(s): L89.893 - Pressure ulcer of other site, stage 3 (2) History of permanent cardiac pacemaker placement: CODE(S): Z95.0 - Presence of cardiac pacemaker (3) Sick sinus syndrome: CODE(S): I49.5 - Sick sinus syndrome (4) Longstanding persistent atrial fibrillation: CODE(S): I48.11 - Longstanding persistent atrial fibrillation (5) Paroxysmal atrial flutter: CODE(S): I48.92 - Unspecified atrial flutter (6) Essential (primary) hypertension: CODE(S): I10 - Essential (primary) hypertension (7) Tobacco abuse: CODE(S): Z72.0 - Tobacco use (8) Tobacco abuse counseling: CODE(S): Z71.6 - Tobacco abuse counseling (9) Nonrheumatic aortic (valve) insufficiency: CODE(S): I35.1 - Nonrheumatic aortic (valve) insufficiency (10) Nonrheumatic mitral (valve) insufficiency: CODE(S): I34.0 - Nonrheumatic mitral (valve) insufficiency (11) History of bilateral hip replacements: CODE(S): Z96.643 - Presence of artificial hip joint, bilateral (12) History of bilateral knee replacement: CODE(S): Z96.653 - Presence of artificial knee joint, bilateral PLAN: Plan This is an 88-year-old male who presented with a stage III pressure ulceration on the right lateral knee. The ulceration occurred as a result of a knee brace which was worn for 5 weeks, without removal. Upon development of pain on the lateral aspect of the right knee, the brace was removed, revealing the presence of a pressure ulceration. The pressure ulceration continues to improve, now exhibiting an increasing amount of pink, healthy, granulation tissue. There has been improvement in the appearance of the ulceration in recent weeks. Offloading measures are to be continued, and have been discussed with the patient and his . We are to implement the use of collagen hydrogel topically to the ulceration on the right lateral knee. This will be applied topically on a daily basis. The patient and his have been instructed in the appropriate means of application. The pressure ulceration appears to be a stage III, and extension into the joint space or bone is not suspected. The patient is to elevate his lower extremities is much as possible, to minimize swelling. He has also been provided a prescription for graduated compression stockings, knee-high length, of 15 to 20 mmHg compression. He has received the stockings, and is wearing them daily. There is now some breakdown on the patient's sacral area and buttocks, with a small superficial excoriation on the left buttock. The patient and his have been instructed in offloading measures. Frequent repositioning has been recommended. Collagen hydrogel is to be applied topically on a daily basis, and covered with a foam dressing. The patient is to follow-up on an outpatient basis in 1 week. Total time: 26 minutes
== END 2023-07-28 23:59 | disposition home or self-care (01) ==
LOC: WC 10:30
PROVIDERS: PCP Preventive Medicine Occupational Medicine; Referring Provider Specialist; Visit Provider Surgery
DX: L89.893 Pressure ulcer of other site, stage 3 (principal); I48.11 Longstanding persistent atrial fibrillation; I49.5 Sick sinus syndrome; I48.92 Unspecified atrial flutter; Z96.643 Presence of artificial hip joint, bilateral; Z95.0 Presence of cardiac pacemaker; I10 Essential (primary) hypertension; Z96.653 Presence of artificial knee joint, bilateral; Z87.891 Personal history of nicotine dependence; M25.561 Pain in right knee; Z79.899 Other long term (current) drug therapy
CPT/HCPCS: 11042

== ENCOUNTER 2023-08-16 10:45 | Outpatient (RCR) | payer MEDICARE, SELFPAY ==
[2023-07-29 00:30] VITALS: BP 173/48; PULSE 77; RESP 16; TEMP 36
[2023-08-02 10:28] VITALS: BP 148/57; PULSE 63; RESP 16; TEMP 36.5
--- NOTE | 2023-08-02 13:34 | HP.PCM_ITS ---
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 The patient has been undergoing recent physical therapy for issues related to his right knee. He was placed in a right knee brace, and was instructed to leave it in place, without removing. The brace was in place for approximately 5 weeks, when the patient began to complain of pain on the lateral aspect of his right knee. The brace was removed, and the patient was found to have a pressure ulceration on the lateral aspect of his right knee whic h appears to be a stage III pressure ulcer. The patient has been referred for evaluation and management. The patient is on Xarelto, and has a history of atrial fibrillation. The patient ambulates in limited fashion, requiring a walker. He sleeps flat at night. His history is negative for myocardial infarction, cerebrovascular accident, renal disease, pulmonary disease, thyroid disease, and hyperlipidemia. He has previously undergone bilateral hip replacement surgery, as well as bilateral knee replacement procedures. He has an indwelling pacemaker. [facility] Medical History Basal cell carcinoma (BCC) of face Essential (primary) hypertension Longstanding persistent atrial fibrillation Nonrheumatic aortic (valve) insufficiency Nonrheumatic aortic valve insufficiency Nonrheumatic mitral (valve) insufficiency Nonrheumatic mitral (valve) insufficiency Paroxysmal atrial flutter Pressure ulcer Sick sinus syndrome Tobacco abuse Tobacco abuse counseling Home Medications fluticasone propionate 50 mcg/actuation nasal spray,suspension 1 spray NASAL DAILY PRN Nasal Congestion 08/04/17 [History Last Taken Unknown] sennosides 8.6 mg-docusate sodium 50 mg tablet 2 tab PO BID PRN Constipation 08/04/17 [History Last Taken Unknown] multivitamin 1 cap PO QDAY 12/23/17 [History Last Taken Unknown] alprazolam 1 mg tablet 1 mg PO DAILY PRN aniexty 04/24/20 [History Last Taken Unknown] doxazosin 4 mg tablet 4 mg PO DAILY #90 tabs 01/25/22 [Rx Last Taken Unknown] ramipril 5 mg capsule See Rx Instructions .Route .COMPLEX #90 caps 12/09/22 [Rx Last Taken Unknown] triamterene 75 mg-hydrochlorothiazide 50 mg tablet 1 tab PO DAILY 05/26/23 [History Last Taken Unknown] paroxetine HCl 10 mg tablet (Paxil) 10 mg PO DAILY 06/14/23 [History Last Taken Unknown] Allergy/AdvReac Type Severity Reaction Status Date / Time No Known Allergies Allergy Verified 05/26/23 15:24 Family History Father Cancer Stomach Cancer Surgical History History of bilateral hip replacements History of bilateral knee replacement 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) Pacemaker Social History Smoking Status: Former smoker alcohol intake: never substance use type: does not use what type of physical activity do you participate in: none Vital Signs Vital Signs Vital Signs: 08/02/23 10:28 Temperature 97.7 F L Temperature Source Temporal Pulse Rate 63 Respiratory Rate 16 Blood Pressure 148/57 H Blood Pressure Mean 87 Blood Pressure Source Monitor Blood Pressure Position Sitting Blood Pressure Location Right Arm Oxygen Delivery Method Room Air Physical Exam Const alert, oriented x3, no apparent distress, average body habitus and well nourished Constitutional Narrative: The patient is of normal body habitus, with a BMI of approximately 24.7. General Appearance: cooperative, comfortable, well kempt and well developed Orientation / Consciousness: awake, oriented to person, oriented to place and oriented to time HEENT normocephalic, head/scalp atraumatic and hearing grossly normal bilaterally Head and Scalp: normal to inspection, normocephalic and atraumatic External Ear: external ears normal Eyes PERRL and EOMs intact bilaterally General Eye: normal appearance of both eyes Neck full ROM Resp normal respiratory effort, normal air movement, no retractions and no use of accessory muscles Effort and Inspection: able to speak in complete sentences and symmetric chest movement Extremity no calf tenderness General Extremity: Negative for clubbing or cyanosis Skin Wound Narrative: A pressure ulcer is noted on the right lateral knee. There is a small amount of nonviable tissue and bioburden, though decreasing in amount in recent weeks. Dimensions are documented elsewhere. The ulceration is decreasing in size and becoming more superficial. There is no drainage. There is no odor. There is no sign of infection or cellulitis. Swelling appears to be well controlled. The erythema and skin irritation in the sacral/buttock area has now resolved. There are no ulcerations in the sacral/buttock region. Neuro oriented x3, CN's II-XII intact bilaterally, moves all extremities and no focal motor deficits Sensorium / Orientation: awake, alert, oriented to person, oriented to place and oriented to time Psych Appearance: grossly normal and appropriate Attitude: calm Activity / Motor Behavior: appropriate eye contact Speech: normal speech Mood & Affect: euthymic mood Thought Process: normal thought process Thought Content: normal thought content Attention / Concentration: attention grossly intact Debridement Note Debridement Note Wound debrided: Stage III pressure ulceration, right lateral knee Laterality: Right Wound Grade/Stage: Stage III Type of Debridement: Excisional debridement Anesthesia Used: 5% Lidocaine Gel Depth: Down to and including healthy tissue and in the subcutaneous layer Percentage of wound debrided: 100 Instrument Used: 3mm curette Severity: Fat Layer Exposed Amount of bleeding with debridement: Mild Bleeding Controlled with: Compression and gauze Patient tolerated procedure: Patient tolerated procedure well Debridement Free Text: Post-Debridement Measurements and Additional Note: Post-Debridement Measurements/Treatment - Nurse 1 - General Ulcer Assessment Start: 08/02/23 10:28 Freq: Status: Active Protocol: ALICIA Activity Type Activity Date Activity User E-sign Co-sign Detail Recorded Client Recorded Date Recorded By Document 08/02/23 10:28 [facility] [id number] 08/02/23 10:39 [facility] 08/02/23 10:28 - Today's Visit Information Type of service Follow-up Visit (Physician/TELESALES ADVISOR ) Arrival Mode Ambulatory, Walker Transfer Assistance None Patient Identification Verified (Name & Yes ) Patient Requires Transmission-Based No Precautions Vital Signs Temperature (97.8 F-99.1 F) 97.7 F L Temperature Source Temporal Pulse Rate (60-100) 63 Pulse Location Monitor Respiratory Rate (12-18) 16 Respiratory rate source Observation Oxygen Delivery Method Room Air Blood Pressure (90/60-120/80) 148/57 H Blood Pressure Mean 87 Source Monitor Position Sitting Blood Pressure Location Right Arm History Since Last Visit- (Skip if this is Patient's initial visit) Have you changed medications since your No last visit? Any new allergies or adverse reactions No Had a fall/change in ADL's that may No increase risk of falls Signs or symptoms of abuse and/or No neglect since last visit Have you been in the hospital since your No last visit? Has dressing in place as prescribed Yes Has compression in place as prescribed N/A Has offloadiing in place as prescribed N/A Experienced any changes in pain level or No management Left Footwear Regular Shoe Right Footwear Regular Shoe Pain Scale: 0-10 Numeric Is Patient Pain Free? Yes MEG - Nurse 1 - General Ulcer Measurement Start: 08/02/23 10:28 Freq: Status: Active Protocol: Activity Type Activity Date Activity User E-sign Co-sign Detail Recorded Client Recorded Date Recorded By Document 08/02/23 10:28 [facility] [id number] 08/02/23 10:39 [facility] 08/02/23 10:28 Wound Center Nurse 1 2-left buttuck -Combined with other wound No -Current Size (cm) - Length 0 -Current Size (cm) - Width 0 -Current Size (cm) - Depth 0 -Total Square Cm 0 -Date of Last Picture (Recall this 08/02/23 field) -Photo Taken Yes -Epithelialization Large 67-100% -Texture (Gricel-wound Skin Appearance) Scarring #1 R Knee -Combined with other wound No -Current Size (cm) - Length 0.1 -Current Size (cm) - Width 0.1 -Current Size (cm) - Depth 0.1 -Total Square Cm 0.01 -Date of Last Picture (Recall this 08/02/23 field) -Photo Taken Yes -Epithelialization Large 67-100% -Tunneling No -Undermining/Tunneling No -Circular Undermining No -Exudate Amt Small -Exudate Type Serosanguineous -Texture (Gricel-wound Skin Appearance) Assessed, Scarring -Moisture (Gricel-wound Skin Appearance) Assessed, Maceration -Color (Gricel-wound Skin Appearance) Assessed -Temperature (Gricel-wound Skin No Abnormality Appearance) (Pt Warm) -Tenderness on Palpation (Gricel-wound No Skin Appearance) -Ulcer Cleansing Rinsed/ Irrigated with Saline -Foul Odor after Cleansing No -Anesthetic Used 5% Lidocaine Gel MEG - Nurse 3 - General Ulcer D/C NN Start: 08/02/23 10:28 Freq: Status: Active Protocol: Activity Type Activity Date Activity User E-sign Co-sign Detail Recorded Client Recorded Date Recorded By Document 08/02/23 11:15 DL [id number] 08/02/23 11:16 DL 08/02/23 11:15 Wound Care Center Nurse 3 -Foul Odor after Cleansing No -Other Dressing hydrogel -Primary Dressing Covered/Secured with Dry Gauze, Secured with Tape Treatment Response Procedure Tolerated Well Pain Scale: 0-10 Numeric Is Patient Pain Free? Yes WC - Visit Discharge Discharge Condition Stable Ambulatory Status Ambulatory Transportation Private [facility] Facility Type Home Health Orders Sent Yes Assessment/Plan Assessment/Plan (1) Pressure ulcer: CODE(S): L89.90 - Pressure ulcer of unspecified site, unspecified stage QUALIFIERS: Pressure injury location: knee Pressure injury stage: stage 3 Laterality: right Qualified Code(s): L89.893 - Pressure ulcer of other site, stage 3 (2) History of permanent cardiac pacemaker placement: CODE(S): Z95.0 - Presence of cardiac pacemaker (3) Sick sinus syndrome: CODE(S): I49.5 - Sick sinus syndrome (4) Longstanding persistent atrial fibrillation: CODE(S): I48.11 - Longstanding persistent atrial fibrillation (5) Paroxysmal atrial flutter: CODE(S): I48.92 - Unspecified atrial flutter (6) Essential (primary) hypertension: CODE(S): I10 - Essential (primary) hypertension (7) Tobacco abuse: CODE(S): Z72.0 - Tobacco use (8) Tobacco abuse counseling: CODE(S): Z71.6 - Tobacco abuse counseling (9) Nonrheumatic aortic (valve) insufficiency: CODE(S): I35.1 - Nonrheumatic aortic (valve) insufficiency (10) Nonrheumatic mitral (valve) insufficiency: CODE(S): I34.0 - Nonrheumatic mitral (valve) insufficiency (11) History of bilateral hip replacements: CODE(S): Z96.643 - Presence of artificial hip joint, bilateral (12) History of bilateral knee replacement: CODE(S): Z96.653 - Presence of artificial knee joint, bilateral PLAN: Plan This is an 88-year-old male who presented with a stage III pressure ulceration on the right lateral knee. The ulceration occurred as a result of a knee brace which was worn for 5 weeks, without removal. Upon development of pain on the lateral aspect of the right knee, the brace was removed, revealing the presence of a pressure ulceration. The pressure ulceration continues to improve, now exhibiting an increasing amount of pink, healthy, granulation tissue. There has been improvement in the appearance of the ulceration in recent weeks. Offloading measures are to be continued, and have been discussed with the patient and his . We are to continue the use of collagen hydrogel topically to the ulceration on the right lateral knee. This will be applied topically on a daily basis. The patient and his have been instructed in the appropriate means of application. The pressure ulceration appears to be a stage III, and extension into the joint space or bone is not suspected. The patient is to elevate his lower extremities is much as possible, to minimize swelling. He has also been provided a prescription for graduated compression stockings, knee-high length, of 15 to 20 mmHg compression. He has received the stockings, and is wearing them daily. The excoriation in the patient's sacral and buttock area have resolved. The patient and his have been instructed to continue offloading measures. Frequent repositioning has been recommended. The patient is to follow-up on an outpatient basis in 2 weeks. Total time: 25 minutes
[2023-08-16 10:46] VITALS: BP 141/61; PULSE 89; RESP 18; TEMP 35.4
--- NOTE | 2023-08-16 11:15 | PCM.WC.HP ---
History of Present Illness Date of Service: 08/16/23 Chief Complaint: Stage III pressure ulceration of the right lateral knee History of Wound: This is an 88-year-old male who presented with a pressure ulceration located on the right lateral knee. The patient has been undergoing recent physical therapy for issues related to his right knee. He was placed in a right knee brace, and was instructed to leave it in place, without removing. The brace was in place for approximately 5 weeks, when the patient began to complain of pain on the lateral aspect of his right knee. The brace was removed, and the patient was found to have a pressure ulceration on the lateral aspect of his right knee which appears to be a stage III pressure ulcer. The patient has been referred for evaluation and management. The patient is on Xarelto, and has a history of atrial fibrillation. The patient ambulates in limited fashion, requiring a walker. He sleeps flat at night. His history is negative for myocardial infarction, cerebrovascular accident, renal disease, pulmonary disease, thyroid disease, and hyperlipidemia. He has previously undergone bilateral hip replacement surgery, as well as bilateral knee replacement procedures. He has an indwelling pacemaker. [facility] Medical History Basal cell carcinoma (BCC) of face Essential (primary) hypertension Longstanding persistent atrial fibrillation Nonrheumatic aortic (valve) insufficiency Nonrheumatic aortic valve insufficiency Nonrheumatic mitral (valve) insufficiency Nonrheumatic mitral (valve) insufficiency Paroxysmal atrial flutter Pressure ulcer Sick sinus syndrome Tobacco abuse Tobacco abuse counseling Home Medications fluticasone propionate 50 mcg/actuation nasal spray,suspension 1 spray NASAL DAILY PRN Nasal Congestion 08/04/17 [History Last Taken Unknown] sennosides 8.6 mg-docusate sodium 50 mg tablet 2 tab PO BID PRN Constipation 08/04/17 [History Last Taken Unknown] multivitamin 1 cap PO QDAY 12/23/17 [History Last Taken Unknown] alprazolam 1 mg tablet 1 mg PO DAILY PRN aniexty 04/24/20 [History Last Taken Unknown] doxazosin 4 mg tablet 4 mg PO DAILY #90 tabs 01/25/22 [Rx Last Taken Unknown] ramipril 5 mg capsule See Rx Instructions .Route .COMPLEX #90 caps 12/09/22 [Rx Last Taken Unknown] triamterene 75 mg-hydrochlorothiazide 50 mg tablet 1 tab PO DAILY 05/26/23 [History Last Taken Unknown] paroxetine HCl 10 mg tablet (Paxil) 10 mg PO DAILY 06/14/23 [History Last Taken Unknown] Allergy/AdvReac Type Severity Reaction Status Date / Time No Known Allergies Allergy Verified 05/26/23 15:24 Family History Father Cancer Stomach Cancer Surgical History History of bilateral hip replacements History of bilateral knee replacement 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) Pacemaker Social History Smoking Status: Former smoker alcohol intake: never substance use type: does not use what type of physical activity do you participate in: none Vital Signs Vital Signs Vital Signs: 08/16/23 10:46 Temperature 95.7 F L Temperature Source Temporal Pulse Rate 89 Respiratory Rate 18 Blood Pressure 141/61 H Blood Pressure Mean 87 Blood Pressure Source Monitor Blood Pressure Position Semi-Fowlers Blood Pressure Location Right Arm Physical Exam Const alert, oriented x3, no apparent distress, average body habitus and well nourished Constitutional Narrative: The patient is of normal body habitus, with a BMI of approximately 24.7. General Appearance: cooperative, comfortable, well kempt and well developed Orientation / Consciousness: awake, oriented to person, oriented to place and oriented to time HEENT normocephalic, head/scalp atraumatic and hearing grossly normal bilaterally Head and Scalp: normal to inspection, normocephalic and atraumatic External Ear: external ears normal Eyes PERRL and EOMs intact bilaterally General Eye: normal appearance of both eyes Neck full ROM Resp normal respiratory effort, normal air movement, no retractions and no use of accessory muscles Effort and Inspection: able to speak in complete sentences and symmetric chest movement Extremity no calf tenderness General Extremity: Negative for clubbing or cyanosis Skin Wound Narrative: The pressure ulceration on the right lateral knee appears to be healed and epithelialized. Neuro oriented x3, CN's II-XII intact bilaterally, moves all extremities and no focal motor deficits Sensorium / Orientation: awake, alert, oriented to person, oriented to place and oriented to time Psych Appearance: grossly normal and appropriate Attitude: calm Activity / Motor Behavior: appropriate eye contact Speech: normal speech Mood & Affect: euthymic mood Thought Process: normal thought process Thought Content: normal thought content Attention / Concentration: attention grossly intact Debridement Note Debridement Note No debridement was completed: No debridement was completed today (The patient's wound is healed.) Post-Debridement Measurements and Additional Note: Post-Debridement Measurements/Treatment - Nurse 1 - General Ulcer Assessment Start: 08/02/23 10:28 Freq: Status: Active Protocol: ALICIA Activity Type Activity Date Activity User E-sign Co-sign Detail Recorded Client Recorded Date Recorded By Document 08/02/23 10:28 [facility] [id number] 08/02/23 10:39 [facility] Document 08/16/23 10:46 Desktop 08/16/23 10:57 08/02/23 08/16/23 10:28 10:46 - Today's Visit Information Type of service Follow-up Visit Follow-up Visit (Physician/SEED TECHNICIAN (Physician/SEED TECHNICIAN ) ) Arrival Mode Ambulatory, Ambulatory, Walker Walker Transfer Assistance None Patient Identification Verified (Name & Yes Yes ) Patient Requires Transmission-Based No No Precautions Vital Signs Temperature (97.8 F-99.1 F) 97.7 F L 95.7 F L Temperature Source Temporal Temporal Pulse Rate (60-100) 63 89 Pulse Location Monitor Monitor Respiratory Rate (12-18) 16 18 Respiratory rate source Observation Observation Oxygen Delivery Method Room Air Blood Pressure (90/60-120/80) 148/57 H 141/61 H Blood Pressure Mean 87 87 Source Monitor Monitor Position Sitting Semi-Fowlers Blood Pressure Location Right Arm Right Arm History Since Last Visit- (Skip if this is Patient's initial visit) Have you changed medications since your No No last visit? Any new allergies or adverse reactions No No Had a fall/change in ADL's that may No No increase risk of falls Signs or symptoms of abuse and/or No No neglect since last visit Have you been in the hospital since your No No last visit? Has dressing in place as prescribed Yes Yes Has compression in place as prescribed N/A N/A Has offloadiing in place as prescribed N/A N/A Experienced any changes in pain level or No No management Left Footwear Regular Shoe Regular Shoe Right Footwear Regular Shoe Regular Shoe Pain Scale: 0-10 Numeric Is Patient Pain Free? Yes Yes WC - Nurse 1 - General Ulcer Measurement Start: 08/02/23 10:28 Freq: Status: Active Protocol: Activity Type Activity Date Activity User E-sign Co-sign Detail Recorded Client Recorded Date Recorded By Document 08/02/23 10:28 [facility] [id number] 08/02/23 10:39 [facility] Document 08/16/23 10:46 Desktop 08/16/23 10:57 08/02/23 08/16/23 10:28 10:46 Wound Center Nurse 1 2-left buttuck -Combined with other wound No -Current Size (cm) - Length 0 -Current Size (cm) - Width 0 -Current Size (cm) - Depth 0 -Total Square Cm 0 -Date of Last Picture (Recall this 08/02/23 field) -Photo Taken Yes -Epithelialization Large 67-100% -Texture (Gricel-wound Skin Appearance) Scarring #1 R Knee -Combined with other wound No No -Current Size (cm) - Length 0.1 0.1 -Current Size (cm) - Width 0.1 0.1 -Current Size (cm) - Depth 0.1 0.1 -Total Square Cm 0.01 0.01 -Date of Last Picture (Recall this 08/02/23 field) -Photo Taken Yes No -Epithelialization Large 67-100% Large 67-100% -Tunneling No No -Undermining/Tunneling No -Circular Undermining No No -Exudate Amt Small None Present -Exudate Type Serosanguineous -Wound Margin Fibrotic Scar, Thickened Scar -Granulation Amt None Present (0 %) -Slough/Fibrin Yes -Necrosis Amt Large (67-100%) -Necrotic Tissue Type Adherent Slough -Structure Exposed N/A -Texture (Gricel-wound Skin Appearance) Assessed, Assessed Scarring -Moisture (Gricel-wound Skin Appearance) Assessed, Assessed,Dry/ Maceration Scaly -Color (Gricel-wound Skin Appearance) Assessed Assessed -Temperature (Gricel-wound Skin No Abnormality No Abnormality Appearance) (Pt Warm) (Pt Warm) -Tenderness on Palpation (Gricel-wound No No Skin Appearance) -Ulcer Cleansing Rinsed/ Rinsed/ Irrigated with Irrigated with Saline Saline -Foul Odor after Cleansing No No -Anesthetic Used 5% Lidocaine 5% Lidocaine Gel Gel Lower Limb Edema Present NA - Nurse 2 - General Ulcer CM Notes Start: 08/02/23 10:28 Freq: Status: Active Protocol: Activity Type Activity Date Activity User E-sign Co-sign Detail Recorded Client Recorded Date Recorded By Document 08/02/23 14:18 PL [id number] 08/02/23 14:19 PL 08/02/23 14:18 Wound Center Nurse 2 #1 R Knee -Time 11:05 -Correct Patient Yes -Correct Side, Site, Position Yes -Correct Procedure Yes -Procedure Performed Yes -Type of Procedure Debridement -Clinical Debridement Subcutaneous -Tissue Removed Subcutaneous -Post Debridement (cm) - Length 0.1 -Post Debridement (cm) - Width 0.1 -Post Debridement (cm) - Depth 0.1 -Total Square (Post) (cm) 0.01 -Area of Debridement (cm) - Length 0.1 -Area of Debridement (cm) - Width 0.1 -Total Square (Area) (cm) 0.01 -Tunneling No -Undermining/Tunneling No -Circular Undermining No -Wound/Ulcer Outcome Not Healed -Ulcer Cleansing Rinsed/ Irrigated with Saline -Foul Odor after Cleansing No -Bioengineered Tissue No -Bleeding Controlled with Pressure -Treatment Response Procedure Tolerated Well -Debridement - Subq, 1st 20sq cm Yes Pain Scale: 0-10 Numeric Is Patient Pain Free? Yes - Nurse 3 - General Ulcer D/C NN Start: 08/02/23 10:28 Freq: Status: Active Protocol: Activity Type Activity Date Activity User E-sign Co-sign Detail Recorded Client Recorded Date Recorded By Document 08/02/23 11:15 DL [id number] 08/02/23 11:16 DL 08/02/23 11:15 Wound Care Center Nurse 3 #1 R Knee -Foul Odor after Cleansing No -Other Dressing hydrogel -Primary Dressing Covered/Secured with Dry Gauze, Secured with Tape Treatment Response Procedure Tolerated Well Pain Scale: 0-10 Numeric Is Patient Pain Free? Yes - Visit Discharge Discharge Condition Stable Ambulatory Status Ambulatory Transportation Private Auto Facility Type Home Health Orders Sent Yes Assessment/Plan Assessment/Plan (1) Pressure ulcer: CODE(S): L89.90 - Pressure ulcer of unspecified site, unspecified stage QUALIFIERS: Pressure injury location: knee Pressure injury stage: stage 3 Laterality: right Qualified Code(s): L89.893 - Pressure ulcer of other site, stage 3 (2) History of permanent cardiac pacemaker placement: CODE(S): Z95.0 - Presence of cardiac pacemaker (3) Sick sinus syndrome: CODE(S): I49.5 - Sick sinus syndrome (4) Longstanding persistent atrial fibrillation: CODE(S): I48.11 - Longstanding persistent atrial fibrillation (5) Paroxysmal atrial flutter: CODE(S): I48.92 - Unspecified atrial flutter (6) Essential (primary) hypertension: CODE(S): I10 - Essential (primary) hypertension (7) Tobacco abuse: CODE(S): Z72.0 - Tobacco use (8) Tobacco abuse counseling: CODE(S): Z71.6 - Tobacco abuse counseling (9) Nonrheumatic aortic (valve) insufficiency: CODE(S): I35.1 - Nonrheumatic aortic (valve) insufficiency (10) Nonrheumatic mitral (valve) insufficiency: CODE(S): I34.0 - Nonrheumatic mitral (valve) insufficiency (11) History of bilateral hip replacements: CODE(S): Z96.643 - Presence of artificial hip joint, bilateral (12) History of bilateral knee replacement: CODE(S): Z96.653 - Presence of artificial knee joint, bilateral PLAN: Plan This is an 88-year-old male who presented with a stage III pressure ulceration on the right lateral knee. The ulceration occurred as a result of a knee brace which was worn for 5 weeks, without removal. Upon development of pain on the lateral aspect of the right knee, the brace was removed, revealing the presence of a pressure ulceration. The pressure ulceration is now completely healed and epithelialized. The patient is to be discharged, and will follow-up henceforth on an as-needed basis. He and his have been instructed to keep the area covered with gauze as a protective mechanism for several weeks, and to avoid friction or trauma to the area. The patient is to elevate his lower extremities is much as possible, to minimize swelling. He has also been provided a prescription for graduated compression stockings, knee-high length, of 15 to 20 mmHg compression. He has received the stockings, and is wearing them daily. The excoriation in the patient's sacral area has resolved, and the patient has been advised to reposition frequently and continue offloading measures. Total time: 24 minutes
== END 2023-08-27 23:59 | disposition home or self-care (01) ==
LOC: WC 10:45
PROVIDERS: PCP Preventive Medicine Occupational Medicine; Referring Provider Specialist; Visit Provider Surgery
DX: L89.893 Pressure ulcer of other site, stage 3 (principal); I48.11 Longstanding persistent atrial fibrillation; I49.5 Sick sinus syndrome; I48.92 Unspecified atrial flutter; Z96.643 Presence of artificial hip joint, bilateral; I10 Essential (primary) hypertension; Z87.891 Personal history of nicotine dependence; Z95.0 Presence of cardiac pacemaker; Z71.6 Tobacco abuse counseling; M25.561 Pain in right knee; Z96.653 Presence of artificial knee joint, bilateral; Z79.899 Other long term (current) drug therapy
CPT/HCPCS: 11042; 99213; G0463

== ENCOUNTER → 2023-10-07 | Outpatient (CLI) | payer MEDICARE, SELFPAY ==
--- NOTE | 2023-10-07 09:53 | VDLE_ITS ---
Reason For Study: SWELLING RIGHT LEFT GSV is normal. GSV is normal. CFV is compressible, spontaneous, phasic, CFV is compressible, spontaneous, phasic, competent and demonstrates normal competent, and demonstrates normal augmentation. augmentation. FV is compressible, spontaneous, phasic, FV is compressible, spontaneous, phasic, competent and demonstrates normal competent and demonstrates normal augmentation. augmentation. POP V is compressible. POP V is compressible, spontaneous, phasic, PTV is compressible. competent and demonstrates normal RT PerV is compressible. augmentation. Procedure T/P Trunk is compressible. This is a venous duplex using B-mode, color PTV is compressible. flow and spectral Doppler. LT PerV is compressible. Exam performed in department. The study was technically difficult. PT unable to move RLE, difficulty imaging RT POP V. A preliminary report was called and/or faxed to Patricia Jarquin @ 10:30 am. VL/Venous Duplex US - Jeronimo Extrem Interpretation Summary Deep veins of the bilateral lower extremities are patent and compressible segme ntally. There is no evidence of bilateral lower extremity deep vein thrombosis. The bilateral great saphenous veins appear patent and compressible segmentally. Ordering Physician: Patricia Jarquin Referring Physician: Al Gonsalez Performed By: Rdaha Domínguez, ANNELIESE, RVT
== END | disposition home or self-care (01) ==
PROVIDERS: PCP Preventive Medicine Occupational Medicine; Referring Provider Physician Assistant Medical; Visit Provider Physician Assistant Medical
DX: R22.43 Localized swelling, mass and lump, lower limb, bilateral (principal); I48.11 Longstanding persistent atrial fibrillation
CPT/HCPCS: 93970